=== PATIENT | female | born 1995 | race Caucasian/White ===

== ENCOUNTER 2016-09-16 21:40 | Emergency (ER) | payer OTHER ==
[~2016-09-16 21:40] MED LIST: ACET50TA PO; COLA100C PO; MOM30SS PO
[2016-09-16] MEDS ORDERED: ONDANSETRON 4 MG ORAL DISINTEGRATING TAB (S0181) As Ordered ONE (22:20)
--- NOTE | 2016-09-16 23:32 | EDDOCDS ---
Nurse's Notes [facility] Name: Jaz Walters Age: 21 yrs Sex: Female : 1995 Arrival Date: 09/16/2016 Time: 21:40 Bed D2 Private MD: Maria Isabel Byrnes C Diagnosis: Nausea with vomiting, unspecified;Cough;Acute upper respiratory infection, unspecified Presentation: 09/16 21:42 Presenting complaint: Patient states: that she "can't keep anything down since 2pm this ms18 afternoon" and had a "nasty cough" and her chest has been bothering her. Adult Sepsis Screening: The patient does not have new or worsening altered mentation. Patient's respiratory rate is less than 22. Systolic blood pressure is greater than 100. Patient has a qSOFA score of 0- Negative Sepsis Screen. Suicide/Homicide risk assessment- the patient denies having any suicidal and/or homicidal ideations and does not present with any other emotional, behavioral or mental health complaints. Status: Patient is not a passenger service representative or dependent. Transition of care: patient was not received from another setting of care. 21:42 Acuity: SEDRICK Level 4 ms18 21:42 Method Of Arrival: Walkin/Carried/Asstd ms18 Triage Assessment: 21:45 General: Appears in no apparent distress, comfortable, Behavior is appropriate for age, ms18 cooperative. Pain: Location: back, chest and abdomen Pain currently is 6 out of 10 on a pain scale. Pt Declines HIV testing. Neurological: No deficits noted. Respiratory: Airway is patent Respiratory effort is even, unlabored. GI: Abdomen is non- distended. Derm: Skin is pink, warm & dry. 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 Breo Ellipta 100-25 mcg/dose inhalation dsdv 1 puff once daily 2. Vitamin D Oral Unknown weekly 3. a pill for acne, long name starts with a "M" - PMHx: Asthma; vitamin d deficiency; - PSHx: R ear surgery; - Social history: Smoking status: Patient uses tobacco products, current every day smoker. No barriers to communication noted, The patient speaks fluent Bahraini. - : The pt / caregiver states he / she is not on anticoagulants. The pt / caregiver states he / she is not on anticoagulants. Home medication list is obtained from the patient. - Exposure Risk Screening:: None identified. Assessment: 23:28 Reassessment: Patient appears in no apparent distress at this time. Patient states tm5 feeling better. Patient states symptoms have improved. private mortgage banker safe's note, no s/s of any distress noted, pt voices no complaints at this time . Vital Signs: 21:41 BP 128 / 69; Pulse 117; Resp 18 S; Temp 98.5; Pulse Ox 97% on R/A; Weight 81.65 kg (R); dd6 Height 5 ft. 3 in. (160.02 cm) (R); 23:28 BP 122 / 72; Pulse 78; Resp 18; Temp 98.0(O); Pulse Ox 100% on R/A; Pain 0/10; tm5 21:41 Body Mass Index 31.89 (81.65 kg, 160.02 cm) dd6 Vitals: 21:41 Log In Time: September 16, 2016 at 21:39. dd6 ED Course: 21:41 Patient visited by Jorge Holguin, WENDY. dd6 21:41 Maria Isabel Byrnes is Private Physician. dd6 21:41 Patient moved to Waiting dd6 21:42 Patient moved to Pre RCE dd6 21:43 Triage Initiated ms18 21:50 Patient moved to D1 ms18 21:55 [facility]. dt4 21:55 Lilly Guallpa MD is Attending Physician. dt4 21:55 Patient visited by Keena Kinsey PA-C. dt4 22:18 [facility] Payment Agreement was scanned into [employer] and attached to record. zo 22:30 Patient moved to D2 cjh 22:57 Patient visited by Beatrice Bledsoe, CAR PAINTER. rs6 23:28 Patient visited by Niurka Duncan RN. tm5 23:28 The patient / caregiver is instructed regarding the plan of care and ED course. tm5 23:28 No IV's were initiated during this patient's visit. No procedures done that require tm5 assistance. Administered Medications: 22:28 Drug: Ondansetron ODT 4 mg [ondansetron 4 mg disintegrating tablet (1 tabs)] Route: PO; [facility] Order Results: There are currently no results for this order. Outcome: 23:03 Discharge ordered by Provider. dt4 23:28 Discharge Assessment: Patient awake, alert and oriented x 3. No cognitive and/or tm5 functional deficits noted. Patient verbalized understanding of disposition instructions. patient administered narcotics - no. The following High Risk Discharge criteria are identified: None. Discharged to home ambulatory. Condition: stable. Discharge instructions given to patient, Instructed on discharge instructions, follow up and referral plans. medication usage, Demonstrated understanding of instructions, medications, Pt was receptive of discharge instructions/ teaching. Prescriptions given X 3. No special radiology studies were completed. Property :Personal belongings accompany Pt. 23:31 Patient left the ED. tm5 Signatures: Livier White Daniell, CAR PAINTER CAR PAINTER dd6 Kelsie Bustos,RN RN [facility] Keena Kinsey, PACrissC PA-C dt4 Leena Acosta RN RN ms18 Beatrice Bledsoe, CAR PAINTER CAR PAINTER rs6 Niurka Duncan RN RN tm5 [facility]
--- NOTE | 2016-09-16 23:32 | EDDOCDS ---
Physician Documentation [facility] Name: Jaz Walters Age: 21 yrs Sex: Female : 1995 Arrival Date: 09/16/2016 Time: 21:40 Bed D2 Private MD: Maria Isabel Byrnes C Disposition: 09/16/16 23:03 Discharged to Home/Self Care. Impression: Nausea with vomiting, unspecified, Cough, Acute upper respiratory infection, unspecified. - Condition is Stable. - Discharge Instructions: Nausea and Vomiting, Cough, Adult. - Prescriptions for Reglan 10 mg Oral Tablet - take 1 tablet by ORAL route every 6 hours take 30 minutes before meals and at bedtime; 20 tablet. Zithromax Z- Howard 250 mg Oral Tablet - take 1 tablet by ORAL route as directed for 5 days Day 1- take two tablets once. Day 2, 3, 4 , 5 take one tablet once daily.; 6 tablet. benzonatate 200 mg Oral Capsule - take 1 capsule by ORAL route 3 times per day As needed; 30 capsule. - Medication Reconciliation, Local Pharmacy Hours form. - Follow up: Emergency Department; When: As needed; Reason: Worsening of conditions. Follow up: Private Physician; When: 2 - 3 days; Reason: Wound/Symptom Recheck, Recheck today's complaints, Continuance of care. - Problem is new. - Symptoms have improved. Historical: - Allergies: Amoxicillin; Benadryl; PENICILLINS; - Home Meds: 1. Breo Ellipta 100-25 mcg/dose inhalation dsdv 1 puff once daily 2. Vitamin D Oral Unknown weekly 3. a pill for acne, long name starts with a "M" - PMHx: Asthma; vitamin d deficiency; - PSHx: R ear surgery; - Social history: Smoking status: Patient uses tobacco products, current every day smoker. No barriers to communication noted, The patient speaks fluent Mauritian. - : The pt / caregiver states he / she is not on anticoagulants. The pt / caregiver states he / she is not on anticoagulants. Home medication list is obtained from the patient. - Exposure Risk Screening:: None identified. 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 3 in. (160.02 cm) (R); 23:28 BP 122 / 72; Pulse 78; Resp 18; Temp 98.0(O); Pulse Ox 100% on R/A; Pain 0/10; tm5 21:41 Body Mass Index 31.89 (81.65 kg, 160.02 cm) dd6 MDM: 22:16 Ondansetron ODT Oral Disintegrating Tablet 4 mg PO once ordered. dt4 22:16 Financial registration complete. zo 22:16 Chest, 2 View (pa\\E\\lat) Ordered. EDMS 22:18 [facility] Payment Agreement was scanned into [employer] and attached to record. zo Administered Medications: 22:28 Drug: Ondansetron ODT 4 mg [ondansetron 4 mg disintegrating tablet (1 tabs)] Route: PO; [facility] Signatures: Dispatcher [employer] EDMS Livier White Diane, PA-C PA-C dt4 Leena Acosta,RN RN ms18 Niurka Duncan,RN RN tm5 Kelsie Bustos RN [facility] The chart was reviewed and I authenticate all verbal orders and agree with the evaluation and treatment provided.Attachments: 22:18 [facility] Payment Agreement zo MTDD
--- NOTE | 2016-09-17 08:05 | REP ---
Clinical: Cough . Comparison: 09/04/2006 . Technique: PA and lateral. Findings: The mediastinum and cardiac silhouette are normal. The lung amador are clear and without acute consolidation, effusion, or pneumothorax. The skeletal structures are intact and normal. Impression: 1. No acute cardiopulmonary process. Signed by Bola Izaguirre MD 09/17/2016 07:57 A
--- NOTE | 2016-09-19 00:33 | EDDOCDS ---
Physician Documentation [facility] Name: Jaz Walters Age: 21 yrs Sex: Female : 1995 Arrival Date: 09/16/2016 Time: 21:40 Bed D2 Private MD: Maria Isabel Byrnes C Disposition: 09/16/16 23:03 Discharged to Home/Self Care. Impression: Nausea with vomiting, unspecified, Cough, Acute upper respiratory infection, unspecified. - Condition is Stable. - Discharge Instructions: Nausea and Vomiting, Cough, Adult. - Prescriptions for Reglan 10 mg Oral Tablet - take 1 tablet by ORAL route every 6 hours take 30 minutes before meals and at bedtime; 20 tablet. Zithromax Z- Howard 250 mg Oral Tablet - take 1 tablet by ORAL route as directed for 5 days Day 1- take two tablets once. Day 2, 3, 4 , 5 take one tablet once daily.; 6 tablet. benzonatate 200 mg Oral Capsule - take 1 capsule by ORAL route 3 times per day As needed; 30 capsule. - Medication Reconciliation, Local Pharmacy Hours form. - Follow up: Emergency Department; When: As needed; Reason: Worsening of conditions. Follow up: Private Physician; When: 2 - 3 days; Reason: Wound/Symptom Recheck, Recheck today's complaints, Continuance of care. - Problem is new. - Symptoms have improved. Historical: - Allergies: Amoxicillin; Benadryl; PENICILLINS; - Home Meds: 1. Breo Ellipta 100-25 mcg/dose inhalation dsdv 1 puff once daily 2. Vitamin D Oral Unknown weekly 3. a pill for acne, long name starts with a "M" - PMHx: Asthma; vitamin d deficiency; - PSHx: R ear surgery; - Social history: Smoking status: Patient uses tobacco products, current every day smoker. No barriers to communication noted, The patient speaks fluent Ukrainian. - : The pt / caregiver states he / she is not on anticoagulants. The pt / caregiver states he / she is not on anticoagulants. Home medication list is obtained from the patient. - Exposure Risk Screening:: None identified. 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 3 in. (160.02 cm) (R); 23:28 BP 122 / 72; Pulse 78; Resp 18; Temp 98.0(O); Pulse Ox 100% on R/A; Pain 0/10; tm5 21:41 Body Mass Index 31.89 (81.65 kg, 160.02 cm) dd6 MDM: 22:16 Ondansetron ODT Oral Disintegrating Tablet 4 mg PO once ordered. dt4 22:16 Financial registration complete. zo 22:16 Chest, 2 View (pa\\E\\lat) Ordered. EDMS :18 [facility] Payment Agreement was scanned into [employer] and attached to record. zo 09/17 09:35 T-Sheet-- Draft Copy was scanned into [employer] and attached to record. gb Administered Medications: 09/16 22:28 Drug: Ondansetron ODT 4 mg [ondansetron 4 mg disintegrating tablet (1 tabs)] Route: PO; [facility] Signatures: Dispatcher [employer] EDMS Mayda Ca, Reg Reg gb [place]clay, Hilariaeann zo Keena Kinsey, PACrissC PA-C dt4 Leena AcostaRN RN ms18 Niurka Duncan,RN RN tm5 Kelsie Bustos RN [facility] The chart was reviewed and I authenticate all verbal orders and agree with the evaluation and treatment provided.Attachments: 22:18 [facility] Payment Agreement zo 09/17 09:35 T-Sheet-- Draft Copy gb Chart Complete MTDD
--- NOTE | 2016-09-19 00:33 | EDDOCDS ---
Nurse's Notes [facility] Name: Jaz Walters Age: 21 yrs Sex: Female : 1995 Arrival Date: 09/16/2016 Time: 21:40 Bed D2 Private MD: Maria Isabel Byrnes C Diagnosis: Nausea with vomiting, unspecified;Cough;Acute upper respiratory infection, unspecified Presentation: 09/16 21:42 Presenting complaint: Patient states: that she "can't keep anything down since 2pm this ms18 afternoon" and had a "nasty cough" and her chest has been bothering her. Adult Sepsis Screening: The patient does not have new or worsening altered mentation. Patient's respiratory rate is less than 22. Systolic blood pressure is greater than 100. Patient has a qSOFA score of 0- Negative Sepsis Screen. Suicide/Homicide risk assessment- the patient denies having any suicidal and/or homicidal ideations and does not present with any other emotional, behavioral or mental health complaints. 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 Transition of care: patient was not received from another setting of care. 21:42 Acuity: SEDRICK Level 4 ms18 21:42 Method Of Arrival: Walkin/Carried/Asstd ms18 Triage Assessment: 21:45 General: Appears in no apparent distress, comfortable, Behavior is appropriate for age, ms18 cooperative. Pain: Location: back, chest and abdomen Pain currently is 6 out of 10 on a pain scale. Pt Declines HIV testing. Neurological: No deficits noted. Respiratory: Airway is patent Respiratory effort is even, unlabored. GI: Abdomen is non- distended. Derm: Skin is pink, warm & dry. 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 Breo Ellipta 100-25 mcg/dose inhalation dsdv 1 puff once daily 2. Vitamin D Oral Unknown weekly 3. a pill for acne, long name starts with a "M" - PMHx: Asthma; vitamin d deficiency; - PSHx: R ear surgery; - Social history: Smoking status: Patient uses tobacco products, current every day smoker. No barriers to communication noted, The patient speaks fluent Canadian. - : The pt / caregiver states he / she is not on anticoagulants. The pt / caregiver states he / she is not on anticoagulants. Home medication list is obtained from the patient. - Exposure Risk Screening:: None identified. Assessment: 23:28 Reassessment: Patient appears in no apparent distress at this time. Patient states tm5 feeling better. Patient states symptoms have improved. horse trainer's note, no s/s of any distress noted, pt voices no complaints at this time . Vital Signs: 21:41 BP 128 / 69; Pulse 117; Resp 18 S; Temp 98.5; Pulse Ox 97% on R/A; Weight 81.65 kg (R); dd6 Height 5 ft. 3 in. (160.02 cm) (R); 23:28 BP 122 / 72; Pulse 78; Resp 18; Temp 98.0(O); Pulse Ox 100% on R/A; Pain 0/10; tm5 21:41 Body Mass Index 31.89 (81.65 kg, 160.02 cm) dd6 Vitals: 21:41 Log In Time: September 16, 2016 at 21:39. dd6 ED Course: 21:41 Patient visited by Jorge Holguin, WENDY. dd6 21:41 Maria Isabel Byrnes is Private Physician. dd6 21:41 Patient moved to Waiting dd6 21:42 Patient moved to Pre RCE dd6 21:43 Triage Initiated ms18 21:50 Patient moved to D1 ms18 21:55 Keena Kinsey PA-C [facility]. dt4 21:55 Lilly Guallpa MD is Attending Physician. dt4 21:55 Patient visited by Keena Kinsey PA-C. dt4 22:18 [facility] Payment Agreement was scanned into [employer] and attached to record. zo 22:30 Patient moved to D2 cjh 22:57 Patient visited by Beatrice Bledsoe, PRODUCTION STAGE MANAGER. rs6 23:28 Patient visited by Niurka Duncan RN. tm5 23:28 The patient / caregiver is instructed regarding the plan of care and ED course. tm5 23:28 No IV's were initiated during this patient's visit. No procedures done that require tm5 assistance. 09/17 08:49 Chest, 2 View (pa\\E\\lat) Returned. EDMS 09:35 T-Sheet-- Draft Copy was scanned into [employer] and attached to record. gb Administered Medications: 09/16 22:28 Drug: Ondansetron ODT 4 mg [ondansetron 4 mg disintegrating tablet (1 tabs)] Route: PO; [facility] Order Results: Radiology Order: Chest, 2 View (pa\\E\\lat) Test: Chest, 2 View (pa\\E\\lat) REASON FOR EXAMINATION: Cough; Clinical: Cough .; ; Comparison: 09/04/2006 .; ; Technique: PA and lateral.; ; Findings:; The mediastinum and cardiac silhouette are normal. The lung amador are clear and; without acute consolidation, effusion, or pneumothorax. The skeletal structures; are intact and normal.; ; Impression:; 1. No acute cardiopulmonary process.; ; ; Signed by; Bola Izaguirre MD 09/17/2016 07:57 A; Outcome: 23:03 Discharge ordered by Provider. dt4 23:28 Discharge Assessment: Patient awake, alert and oriented x 3. No cognitive and/or tm5 functional deficits noted. Patient verbalized understanding of disposition instructions. patient administered narcotics - no. The following High Risk Discharge criteria are identified: None. Discharged to home ambulatory. Condition: stable. Discharge instructions given to patient, Instructed on discharge instructions, follow up and referral plans. medication usage, Demonstrated understanding of instructions, medications, Pt was receptive of discharge instructions/ teaching. Prescriptions given X 3. No special radiology studies were completed. Property :Personal belongings accompany Pt. 23:31 Patient left the ED. tm5 Signatures: Dispatcher [employer] EDMS Mayda Ca, Reg Reg gb Livier White Daniell, PRODUCTION STAGE MANAGER PRODUCTION STAGE MANAGER dd6 Kelsie Bustos,RN RN [facility] Keena Kinsey, PA-C PA-C dt4 Leena Acosta,ASHLEY RN ms18 Beatrice Bledsoe, PRODUCTION STAGE MANAGER PRODUCTION STAGE MANAGER rs6 Niurka Duncan RN RN tm5 Chart Complete MTDD
--- NOTE | 2016-09-19 00:33 | EDDOCDS ---
Physician Documentation [facility] Name: Jaz Walters Age: 21 yrs Sex: Female : 1995 Arrival Date: 09/16/2016 Time: 21:40 Bed D2 Private MD: Maria Isabel Byrnes C Disposition: 09/16/16 23:03 Discharged to Home/Self Care. Impression: Nausea with vomiting, unspecified, Cough, Acute upper respiratory infection, unspecified. - Condition is Stable. - Discharge Instructions: Nausea and Vomiting, Cough, Adult. - Prescriptions for Reglan 10 mg Oral Tablet - take 1 tablet by ORAL route every 6 hours take 30 minutes before meals and at bedtime; 20 tablet. Zithromax Z- Howard 250 mg Oral Tablet - take 1 tablet by ORAL route as directed for 5 days Day 1- take two tablets once. Day 2, 3, 4 , 5 take one tablet once daily.; 6 tablet. benzonatate 200 mg Oral Capsule - take 1 capsule by ORAL route 3 times per day As needed; 30 capsule. - Medication Reconciliation, Local Pharmacy Hours form. - Follow up: Emergency Department; When: As needed; Reason: Worsening of conditions. Follow up: Private Physician; When: 2 - 3 days; Reason: Wound/Symptom Recheck, Recheck today's complaints, Continuance of care. - Problem is new. - Symptoms have improved. Historical: - Allergies: Amoxicillin; Benadryl; PENICILLINS; - Home Meds: 1. Breo Ellipta 100-25 mcg/dose inhalation dsdv 1 puff once daily 2. Vitamin D Oral Unknown weekly 3. a pill for acne, long name starts with a "M" - PMHx: Asthma; vitamin d deficiency; - PSHx: R ear surgery; - Social history: Smoking status: Patient uses tobacco products, current every day smoker. No barriers to communication noted, The patient speaks fluent Gabonese. - : The pt / caregiver states he / she is not on anticoagulants. The pt / caregiver states he / she is not on anticoagulants. Home medication list is obtained from the patient. - Exposure Risk Screening:: None identified. 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 3 in. (160.02 cm) (R); 23:28 BP 122 / 72; Pulse 78; Resp 18; Temp 98.0(O); Pulse Ox 100% on R/A; Pain 0/10; tm5 21:41 Body Mass Index 31.89 (81.65 kg, 160.02 cm) dd6 MDM: 22:16 Ondansetron ODT Oral Disintegrating Tablet 4 mg PO once ordered. dt4 22:16 Financial registration complete. zo 22:16 Chest, 2 View (pa\\E\\lat) Ordered. EDMS :18 [facility] Payment Agreement was scanned into [employer] and attached to record. zo 09/17 09:35 T-Sheet-- Draft Copy was scanned into [employer] and attached to record. gb Administered Medications: 09/16 22:28 Drug: Ondansetron ODT 4 mg [ondansetron 4 mg disintegrating tablet (1 tabs)] Route: PO; [facility] Signatures: Dispatcher [employer] EDMS Mayda Ca, Reg Reg gb [place], Hilariaeann zo Keena Kinsey, PACrissC PA-C dt4 Leena AcostaRN RN ms18 Niurka Duncan,RN RN tm5 Kelsie Bustos RN [facility] The chart was reviewed and I authenticate all verbal orders and agree with the evaluation and treatment provided.Attachments: 22:18 [facility] Payment Agreement zo 09/17 09:35 T-Sheet-- Draft Copy gb Chart Complete MTDD
== END 2016-09-16 23:31 | disposition home or self-care (01) ==
LOC: M ED 21:40
DX: R11.2 Nausea with vomiting, unspecified (principal); J06.9 Acute upper respiratory infection, unspecified; J45.909 Unspecified asthma, uncomplicated; E55.9 Vitamin D deficiency, unspecified; F17.210 Nicotine dependence, cigarettes, uncomplicated; Z79.899 Other long term (current) drug therapy; Z79.51 Long term (current) use of inhaled steroids; Z88.0 Allergy status to penicillin; Z88.8 Allergy status to other drugs, medicaments and biological substances

== ENCOUNTER 2016-10-11 12:19 | Emergency (ER) | payer OTHER ==
--- NOTE | 2016-10-11 14:06 | REP ---
HEAD CT WITHOUT CONTRAST: HISTORY: Headache with loss of sensation right side of the body. No comparison brain imaging. CT FINDINGS: Bone window settings demonstrate an intact bony calvarium. There is no evidence of skull fracture or incidental bony calvarial lesion. The visualized paranasal sinuses appear clear. No intraorbital abnormality is seen. On soft tissue window setting images; the lateral, third, and fourth ventricles are normal in size and position. Tafoya-white differentiation pattern is normal above and below the tentorium. There are is no evidence of intracranial hemorrhage. No mass, edema, infarction, or midline shift is seen. No extra-axial fluid collection is appreciated. IMPRESSION: Negative noncontrast head CT. Signed by Ld Castellanos MD 10/11/2016 02:30 P
[2016-10-11] MEDS ORDERED: KETOROLAC 30 MG/ML VIAL (J1885) As Ordered ONE (14:27)
[2016-10-11] MEDS ORDERED: METOCLOPRAMIDE INJ 10MG/2ML VIAL (J2765) As Ordered ONE (14:27)
[2016-10-11] MEDS ORDERED: dexameTHASONE 4 MG/ML 1ML VIAL (J1100) As Ordered ONE (14:27)
--- NOTE | 2016-10-11 16:09 | EDDOCDS ---
Physician Documentation [facility] Name: Jaz Walters Age: 21 yrs Sex: Female : 1995 Arrival Date: 10/11/2016 Time: 12:19 Bed I5 / M5 Private MD: Maria Isabel Byrnes C Disposition: 10/11/16 15:57 Discharged to Home/Self Care. Impression: Headache. - Condition is Stable. - Prescriptions for Zolmitriptan 2.5 mg Oral Tablet - take 1 tablet by ORAL route one time - if headache returns, the dose may be repeated after 2 hours, not to exceed 4 tablets within 24 hours; 30 tablet. - Medication Reconciliation, Local Pharmacy Hours form. - Follow up: Emergency Department; When: As soon as possible; Reason: Worsening of conditions. Follow up: Private Physician; When: 2 - 3 days; Reason: Recheck today's complaints. - Problem is new. - Symptoms are unchanged. Historical: - Allergies: Amoxicillin (Hives); PENICILLINS (Hives); Benadryl (Hives); - Home Meds: 1. Breo Ellipta 100-25 mcg/dose inhalation dsdv 1 puff once daily (Last dose: 10/11/2016 08:30) 2. Vitamin D Oral Unknown weekly (Last dose: Unknown) 3. minocycline Unknown Oral 1 cap once daily (Last dose: 10/11/2016 08:30) 4. acetaminophen 500 mg Oral cap 2 caps every 6 hours (Last dose: 10/11/2016 11:45) - PMHx: Asthma; Vitamin D deficiency; Migraine Headaches; - Social history: Smoking status: Patient uses tobacco products, light tobacco smoker. No barriers to communication noted, The patient speaks fluent Bulgarian. - Family history: Not pertinent. - : The pt / caregiver states he / she is not on anticoagulants. Home medication list is obtained from the patient. - Exposure Risk Screening:: None identified. 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 [facility] Vital Signs: 12:21 BP 117 / 63; Pulse 81; Resp 18 S; Temp 97.6(O); Pulse Ox 97% on R/A; Weight 81.65 kg / gr2 180.01 lbs (R); Height 5 ft. 3 in. (160.02 cm) (R); Pain 8/10; 16:02 BP 121 / 69; Pulse 84; Resp 18; Temp 97.1; Pulse Ox 99% ; Pain 4/10; jam1 12:21 Body Mass Index 31.89 (81.65 kg, 160.02 cm) gr2 MDM: 13:28 Financial registration complete. lg 13:35 CT Head Without Contrast Ordered. EDWI 13:51 [facility] Payment Agreement was scanned into [employer] and attached to record. lg 14:17 IV Saline Lock ordered. jk8 14:17 Dexamethasone 6 mg IV at bolus once ordered. jk8 14:17 ketorolac 15 mg IVP once ordered. jk8 14:17 Metoclopramide 10 mg IV at 40 mg/hr once over 15 mins ordered. jk8 14:29 UCG by Nursing ordered. jo3 Point of Care Testing: Urine : 14:31 hCG Reading: Negative; jam1 Ranges: Administered Medications: 14:17 Drug: Dexamethasone 6 mg [dexamethasone 4 mg/mL injection solution] Route: IV; Rate: jo3 bolus; Site: left antecubital; 14:19 Drug: ketorolac 15 mg [ketorolac 30 mg/mL (1 mL) injection solution (0.5 mL)] Route: jo3 IVP; Site: left antecubital; 14:41 Drug: Metoclopramide 10 mg [metoclopramide 5 mg/mL injection solution] Route: IV; Rate: jo3 40 mg/hr; Infused Over: 15 mins; Site: left antecubital; Signatures: Dispatcher MedHo EDWI Racquel Reed RN RN kpj Ganter, LoriLee, Tl [facility] Grazyna Barton RN RN jo3 Quay, Paulina, RN RN pml Kenniff, Joseph, PA-C PA-C jk8 The chart was reviewed and I authenticate all verbal orders and agree with the evaluation and treatment provided.Attachments: 13:51 [facility] [place] lg MTDD
--- NOTE | 2016-10-11 16:09 | EDDOCDS ---
Nurse's Notes [facility] Name: Jaz Walters Age: 21 yrs Sex: Female : 1995 Arrival Date: 10/11/2016 Time: 12:19 Bed I5 / M5 Private MD: Maria Isabel Byrnes C Diagnosis: Headache Presentation: 10/11 12:26 Presenting complaint: Patient states: woke up with migraine headache. This patient has [facility] no additional risk factors. Adult Sepsis Screening: The patient does not have new or worsening altered mentation. Patient's respiratory rate is less than 22. Systolic blood pressure is greater than 100. Patient has a qSOFA score of 0- Negative Sepsis Screen. Suicide/Homicide risk assessment- the patient denies having any suicidal and/or homicidal ideations and does not present with any other emotional, behavioral or mental health complaints. Status: Patient is not a service control operator or dependent. Transition of care: patient was not received from another setting of care. 12:26 Acuity: SEDRICK Level 3 [facility] 12:26 Method Of Arrival: Walkin/Carried/Asstd [facility] Triage Assessment: 12:30 Headache History: This headache is more severe than any previous headaches the patient [facility] has experienced. General: Appears uncomfortable, well nourished, well groomed, Behavior is appropriate for age, pleasant. Pain: Location: top of head and forehead Pain currently is 9 out of 10 on a pain scale. Pain began this morning. HIV screening NA for this visit Offered previously. Neurological: Level of Consciousness is awake, alert, Oriented to person, place, time, Reports headache rt facial numbness that has subsided. Respiratory: Airway is patent Respiratory effort is even, unlabored, Respiratory pattern is regular, symmetrical. GI: Reports nausea, vomiting. Derm: Skin is dry, Skin is pale, pink, Skin temperature is warm. 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 [facility] Historical: - Allergies: Amoxicillin (Hives); PENICILLINS (Hives); Benadryl (Hives); - Home Meds: 1. Breo Ellipta 100-25 mcg/dose inhalation dsdv 1 puff once daily (Last dose: 10/11/2016 08:30) 2. Vitamin D Oral Unknown weekly (Last dose: Unknown) 3. minocycline Unknown Oral 1 cap once daily (Last dose: 10/11/2016 08:30) 4. acetaminophen 500 mg Oral cap 2 caps every 6 hours (Last dose: 10/11/2016 11:45) - PMHx: Asthma; Vitamin D deficiency; Migraine Headaches; - Social history: Smoking status: Patient uses tobacco products, light tobacco smoker. No barriers to communication noted, The patient speaks fluent Lithuanian. - Family history: Not pertinent. - : The pt / caregiver states he / she is not on anticoagulants. Home medication list is obtained from the patient. - Exposure Risk Screening:: None identified. Screenin:33 Screening information is obtained from the patient. Fall risk: No risks identified. pml Assistance ADL's: requires no assistance with activities of daily living. Abuse/DV Screen: The patient / caregiver reports he/she is: not in a situation that causes fear, pain or injury. Nutritional screening: No deficits noted. Advance Directives: Currently, there is no health care proxy. home support is adequate. Assessment: 14:33 General: Appears in no apparent distress, Behavior is appropriate for age, cooperative. pml Pain: Location: forehead and top of head Pain currently is 8 out of 10 on a pain scale. Neurological: Level of Consciousness is awake, alert, Oriented to person, place, time. Neurological: Denies blurred vision dizziness, photophobia. Cardiovascular: Capillary refill < 3 seconds. Respiratory: Airway is patent Respiratory effort is even, unlabored. GI: Abdomen is non- distended Reports vomiting. Derm: Skin is pink, warm & dry. 15:57 General: Appears to be sleeping. Cardiovascular: Capillary refill < 3 seconds. pml Respiratory: Airway is patent Respiratory effort is even, unlabored. Derm: Skin is pink, warm & dry. 16:06 General: Appears in no apparent distress, Behavior is appropriate for age, cooperative. pml Pain: Location: top of head Pain currently is 3 out of 10 on a pain scale. Neurological: Level of Consciousness is awake, alert, Oriented to person, place, time. Cardiovascular: Capillary refill < 3 seconds. Respiratory: Airway is patent Respiratory effort is even, unlabored. Derm: Skin is pink, warm & dry. Vital Signs: 12:21 BP 117 / 63; Pulse 81; Resp 18 S; Temp 97.6(O); Pulse Ox 97% on R/A; Weight 81.65 kg gr2 (R); Height 5 ft. 3 in. (160.02 cm) (R); Pain 8/10; 16:02 BP 121 / 69; Pulse 84; Resp 18; Temp 97.1; Pulse Ox 99% ; Pain 4/10; jam1 12:21 Body Mass Index 31.89 (81.65 kg, 160.02 cm) gr2 Vitals: 12:21 Log In Time: October 11, 2016 at 12:21. gr2 ED Course: 12:20 Patient visited by Afia Valentin. gr2 12:20 Patient moved to Waiting gr2 12:21 Maria Isabel Byrnes is Private Physician. gr2 12:22 Patient visited by Afia Valentin. gr2 12:22 Patient moved to Pre RCE gr2 12:28 Triage Initiated kp 12:57 Patient moved to Triage 3 srm 13:27 Reg Dahl PA-C is PHCP. jk8 13:27 Petrona Katz MD is Attending Physician. jk8 13:27 Patient visited by Reg Dahl PA-C. jk8 13:51 [facility] Payment Agreement was scanned into [employer] and attached to record. lg 13:51 Patient moved to TR2 dem1 14:22 Patient moved to I5 / M5 srm 14:33 The patient / caregiver is instructed regarding the plan of care and ED course. Patient pml has correct armband on for positive identification. Placed in gown. Bed in low position. Call light in reach. Side rails up X2. 14:33 Inserted peripheral IV: 20gauge IV in left antecubital area and blood collected. pml Patient tolerated the procedure well. 14:34 Patient visited by Duyen Wang RN. pml 14:43 CT Head Without Contrast Returned. EDMS 15:57 Patient visited by Duyen Wang RN. pml 16:06 Discontinued lock intact, bleeding controlled, pressure dressing applied, No pml redness/swelling at site. No procedures done that require assistance. Administered Medications: 14:17 Drug: Dexamethasone 6 mg [dexamethasone 4 mg/mL injection solution] Route: IV; Rate: jo3 bolus; Site: left antecubital; 14:19 Drug: ketorolac 15 mg [ketorolac 30 mg/mL (1 mL) injection solution (0.5 mL)] Route: jo3 IVP; Site: left antecubital; 14:41 Drug: Metoclopramide 10 mg [metoclopramide 5 mg/mL injection solution] Route: IV; Rate: jo3 40 mg/hr; Infused Over: 15 mins; Site: left antecubital; Point of Care Testing: Urine : 14:31 hCG Reading: Negative; jam1 Ranges: Order Results: Radiology Order: CT Head Without Contrast Test: CT Head Without Contrast REASON FOR EXAMINATION: HEADACHE WITH LOSS F SENSATIN RIGHT SIDE OF BODY; HEAD CT WITHOUT CONTRAST:; ; HISTORY: Headache with loss of sensation right side of the body.; ; No comparison brain imaging.; ; CT FINDINGS: Bone window settings demonstrate an intact bony calvarium. There; is no evidence of skull fracture or incidental bony calvarial lesion. The; visualized paranasal sinuses appear clear. No intraorbital abnormality is seen.; On soft tissue window setting images; the lateral, third, and fourth ventricles; are normal in size and position. Tafoya-white differentiation pattern is normal; above and below the tentorium. There are is no evidence of intracranial; hemorrhage. No mass, edema, infarction, or midline shift is seen. No; extra-axial fluid collection is appreciated.; ; IMPRESSION:; ; Negative noncontrast head CT.; ; ; Signed by; Ld Castellanos MD 10/11/2016 02:30 P; Outcome: 15:57 Discharge ordered by Provider. jk8 16:06 Discharge Assessment: Patient awake, alert and oriented x 3. No cognitive and/or pml functional deficits noted. Patient verbalized understanding of disposition instructions. patient administered narcotics - no. The following High Risk Discharge criteria are identified: None. Discharged to home ambulatory. Condition: good Condition: stable. Discharge instructions given to patient, Instructed on discharge instructions, follow up and referral plans. medication usage, Demonstrated understanding of instructions, medications, Pt was receptive of discharge instructions/ teaching. CT Study completed. Property sent home with patient. 16:08 Patient left the ED. pml Signatures: Dispatcher [employer] EDRacquel Mckeon RN RN kpj Michelson, Staci, RN RN srm Murphy, Jane, INTERNET NETWORK SPECIALIST INTERNET NETWORK SPECIALIST jam1 Jaylon Sanders, Grazyna Carter lg, RN RN jo3 Duyen Wang RN RN pml Jersey Suarez1 Afia Valentin2 Reg Dahl PA-C PA-C jk8 IRINAD
--- NOTE | 2016-10-13 17:09 | EDDOCDS ---
Physician Documentation [facility] Name: Jaz Walters Age: 21 yrs Sex: Female : 1995 Arrival Date: 10/11/2016 Time: 12:19 Bed I5 / M5 Private MD: Maria Isabel Byrnes C Disposition: 10/11/16 15:57 Discharged to Home/Self Care. Impression: Headache. - Condition is Stable. - Prescriptions for Zolmitriptan 2.5 mg Oral Tablet - take 1 tablet by ORAL route one time - if headache returns, the dose may be repeated after 2 hours, not to exceed 4 tablets within 24 hours; 30 tablet. - Medication Reconciliation, Local Pharmacy Hours form. - Follow up: Emergency Department; When: As soon as possible; Reason: Worsening of conditions. Follow up: Private Physician; When: 2 - 3 days; Reason: Recheck today's complaints. - Problem is new. - Symptoms are unchanged. Historical: - Allergies: Amoxicillin (Hives); PENICILLINS (Hives); Benadryl (Hives); - Home Meds: 1. Breo Ellipta 100-25 mcg/dose inhalation dsdv 1 puff once daily (Last dose: 10/11/2016 08:30) 2. Vitamin D Oral Unknown weekly (Last dose: Unknown) 3. minocycline Unknown Oral 1 cap once daily (Last dose: 10/11/2016 08:30) 4. acetaminophen 500 mg Oral cap 2 caps every 6 hours (Last dose: 10/11/2016 11:45) - PMHx: Asthma; Vitamin D deficiency; Migraine Headaches; - Social history: Smoking status: Patient uses tobacco products, light tobacco smoker. No barriers to communication noted, The patient speaks fluent Kyrgyz. - Family history: Not pertinent. - : The pt / caregiver states he / she is not on anticoagulants. Home medication list is obtained from the patient. - Exposure Risk Screening:: None identified. 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 [facility] Vital Signs: 12:21 BP 117 / 63; Pulse 81; Resp 18 S; Temp 97.6(O); Pulse Ox 97% on R/A; Weight 81.65 kg / gr2 180.01 lbs (R); Height 5 ft. 3 in. (160.02 cm) (R); Pain 8/10; 16:02 BP 121 / 69; Pulse 84; Resp 18; Temp 97.1; Pulse Ox 99% ; Pain 4/10; jam1 12:21 Body Mass Index 31.89 (81.65 kg, 160.02 cm) gr2 MDM: 13:28 Financial registration complete. lg 13:35 CT Head Without Contrast Ordered. EDMS 13:51 [facility] [place] [facility] Payment Agreement was scanned into [employer] and attached to record. lg 14:17 IV Saline Lock ordered. jk8 14:17 Dexamethasone 6 mg IV at bolus once ordered. jk8 14:17 ketorolac 15 mg IVP once ordered. jk8 14:17 Metoclopramide 10 mg IV at 40 mg/hr once over 15 mins ordered. jk8 14:29 UCG by Nursing ordered. jo3 21:58 T-Sheet-- Draft Copy was scanned into [employer] and attached to record. klr Point of Care Testing: Urine : 14:31 hCG Reading: Negative; jam1 Ranges: Administered Medications: 14:17 Drug: Dexamethasone 6 mg [dexamethasone 4 mg/mL injection solution] Route: IV; Rate: jo3 bolus; Site: left antecubital; 14:19 Drug: ketorolac 15 mg [ketorolac 30 mg/mL (1 mL) injection solution (0.5 mL)] Route: jo3 IVP; Site: left antecubital; 14:41 Drug: Metoclopramide 10 mg [metoclopramide 5 mg/mL injection solution] Route: IV; Rate: jo3 40 mg/hr; Infused Over: 15 mins; Site: left antecubital; Signatures: Dispatcher [employer] EDNV Racquel Reed RN RN kpj Ganter, LoriLee, Reg Reg lg Grazyna Barton RN RN jo3 Quay, Paulina, RN RN pml Kenniff, Joseph, PA-C PA-C jk8 Redder, Kathie klr The chart was reviewed and I authenticate all verbal orders and agree with the evaluation and treatment provided.Attachments: 13:51 [facility] Payment Agreement lg 21:58 T-Sheet-- Draft Copy klr Chart Complete MTDD
--- NOTE | 2016-10-13 17:09 | EDDOCDS ---
Nurse's Notes [facility] Name: Jaz Walters Age: 21 yrs Sex: Female : 1995 Arrival Date: 10/11/2016 Time: 12:19 Bed I5 / M5 Private MD: Maria Isabel Byrnes C Diagnosis: Headache Presentation: 10/11 12:26 Presenting complaint: Patient states: woke up with migraine headache. This patient has [facility] no additional risk factors. Adult Sepsis Screening: The patient does not have new or worsening altered mentation. Patient's respiratory rate is less than 22. Systolic blood pressure is greater than 100. Patient has a qSOFA score of 0- Negative Sepsis Screen. Suicide/Homicide risk assessment- the patient denies having any suicidal and/or homicidal ideations and does not present with any other emotional, behavioral or mental health complaints. 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 Transition of care: patient was not received from another setting of care. 12:26 Acuity: SEDRICK Level 3 [facility] 12:26 Method Of Arrival: Walkin/Carried/Asstd [facility] Triage Assessment: 12:30 Headache History: This headache is more severe than any previous headaches the patient [facility] has experienced. General: Appears uncomfortable, well nourished, well groomed, Behavior is appropriate for age, pleasant. Pain: Location: top of head and forehead Pain currently is 9 out of 10 on a pain scale. Pain began this morning. HIV screening NA for this visit Offered previously. Neurological: Level of Consciousness is awake, alert, Oriented to person, place, time, Reports headache rt facial numbness that has subsided. Respiratory: Airway is patent Respiratory effort is even, unlabored, Respiratory pattern is regular, symmetrical. GI: Reports nausea, vomiting. Derm: Skin is dry, Skin is pale, pink, Skin temperature is warm. 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 [facility] Historical: - Allergies: Amoxicillin (Hives); PENICILLINS (Hives); Benadryl (Hives); - Home Meds: 1. Breo Ellipta 100-25 mcg/dose inhalation dsdv 1 puff once daily (Last dose: 10/11/2016 08:30) 2. Vitamin D Oral Unknown weekly (Last dose: Unknown) 3. minocycline Unknown Oral 1 cap once daily (Last dose: 10/11/2016 08:30) 4. acetaminophen 500 mg Oral cap 2 caps every 6 hours (Last dose: 10/11/2016 11:45) - PMHx: Asthma; Vitamin D deficiency; Migraine Headaches; - Social history: Smoking status: Patient uses tobacco products, light tobacco smoker. No barriers to communication noted, The patient speaks fluent Korean. - Family history: Not pertinent. - : The pt / caregiver states he / she is not on anticoagulants. Home medication list is obtained from the patient. - Exposure Risk Screening:: None identified. Screenin:33 Screening information is obtained from the patient. Fall risk: No risks identified. pml Assistance ADL's: requires no assistance with activities of daily living. Abuse/DV Screen: The patient / caregiver reports he/she is: not in a situation that causes fear, pain or injury. Nutritional screening: No deficits noted. Advance Directives: Currently, there is no health care proxy. home support is adequate. Assessment: 14:33 General: Appears in no apparent distress, Behavior is appropriate for age, cooperative. pml Pain: Location: forehead and top of head Pain currently is 8 out of 10 on a pain scale. Neurological: Level of Consciousness is awake, alert, Oriented to person, place, time. Neurological: Denies blurred vision dizziness, photophobia. Cardiovascular: Capillary refill < 3 seconds. Respiratory: Airway is patent Respiratory effort is even, unlabored. GI: Abdomen is non- distended Reports vomiting. Derm: Skin is pink, warm & dry. 15:57 General: Appears to be sleeping. Cardiovascular: Capillary refill < 3 seconds. pml Respiratory: Airway is patent Respiratory effort is even, unlabored. Derm: Skin is pink, warm & dry. 16:06 General: Appears in no apparent distress, Behavior is appropriate for age, cooperative. pml Pain: Location: top of head Pain currently is 3 out of 10 on a pain scale. Neurological: Level of Consciousness is awake, alert, Oriented to person, place, time. Cardiovascular: Capillary refill < 3 seconds. Respiratory: Airway is patent Respiratory effort is even, unlabored. Derm: Skin is pink, warm & dry. Vital Signs: 12:21 BP 117 / 63; Pulse 81; Resp 18 S; Temp 97.6(O); Pulse Ox 97% on R/A; Weight 81.65 kg gr2 (R); Height 5 ft. 3 in. (160.02 cm) (R); Pain 8/10; 16:02 BP 121 / 69; Pulse 84; Resp 18; Temp 97.1; Pulse Ox 99% ; Pain 4/10; jam1 12:21 Body Mass Index 31.89 (81.65 kg, 160.02 cm) gr2 Vitals: 12:21 Log In Time: October 11, 2016 at 12:21. gr2 ED Course: 12:20 Patient visited by Afia Valentin. gr2 12:20 Patient moved to Waiting gr2 12:21 Maria Isabel Byrnes is Private Physician. gr2 12:22 Patient visited by Afia Valentin. gr2 12:22 Patient moved to Pre RCE gr2 12:28 Triage Initiated kp 12:57 Patient moved to Triage 3 srm 13:27 Reg Dahl PA-C is PHCP. jk8 13:27 Petrona Katz MD is Attending Physician. jk8 13:27 Patient visited by Reg Dahl PA-C. jk8 13:51 [facility] Payment Agreement was scanned into [employer] and attached to record. lg 13:51 Patient moved to TR2 dem1 14:22 Patient moved to I5 / M5 srm 14:33 The patient / caregiver is instructed regarding the plan of care and ED course. Patient pml has correct armband on for positive identification. Placed in gown. Bed in low position. Call light in reach. Side rails up X2. 14:33 Inserted peripheral IV: 20gauge IV in left antecubital area and blood collected. pml Patient tolerated the procedure well. 14:34 Patient visited by Duyen Wang RN. pml 14:43 CT Head Without Contrast Returned. EDMS 15:57 Patient visited by Duyen Wang RN. pml 16:06 Discontinued lock intact, bleeding controlled, pressure dressing applied, No pml redness/swelling at site. No procedures done that require assistance. 21:58 T-Sheet-- Draft Copy was scanned into [employer] and attached to record. klr Administered Medications: 14:17 Drug: Dexamethasone 6 mg [dexamethasone 4 mg/mL injection solution] Route: IV; Rate: jo3 bolus; Site: left antecubital; 14:19 Drug: ketorolac 15 mg [ketorolac 30 mg/mL (1 mL) injection solution (0.5 mL)] Route: jo3 IVP; Site: left antecubital; 14:41 Drug: Metoclopramide 10 mg [metoclopramide 5 mg/mL injection solution] Route: IV; Rate: jo3 40 mg/hr; Infused Over: 15 mins; Site: left antecubital; Point of Care Testing: Urine : 14:31 hCG Reading: Negative; jam1 Ranges: Order Results: Radiology Order: CT Head Without Contrast Test: CT Head Without Contrast REASON FOR EXAMINATION: HEADACHE WITH LOSS F SENSATIN RIGHT SIDE OF BODY; HEAD CT WITHOUT CONTRAST:; ; HISTORY: Headache with loss of sensation right side of the body.; ; No comparison brain imaging.; ; CT FINDINGS: Bone window settings demonstrate an intact bony calvarium. There; is no evidence of skull fracture or incidental bony calvarial lesion. The; visualized paranasal sinuses appear clear. No intraorbital abnormality is seen.; On soft tissue window setting images; the lateral, third, and fourth ventricles; are normal in size and position. Tafoya-white differentiation pattern is normal; above and below the tentorium. There are is no evidence of intracranial; hemorrhage. No mass, edema, infarction, or midline shift is seen. No; extra-axial fluid collection is appreciated.; ; IMPRESSION:; ; Negative noncontrast head CT.; ; ; Signed by; Ld Castellanos MD 10/11/2016 02:30 P; Outcome: 15:57 Discharge ordered by Provider. jk8 16:06 Discharge Assessment: Patient awake, alert and oriented x 3. No cognitive and/or pml functional deficits noted. Patient verbalized understanding of disposition instructions. patient administered narcotics - no. The following High Risk Discharge criteria are identified: None. Discharged to home ambulatory. Condition: good Condition: stable. Discharge instructions given to patient, Instructed on discharge instructions, follow up and referral plans. medication usage, Demonstrated understanding of instructions, medications, Pt was receptive of discharge instructions/ teaching. CT Study completed. Property sent home with patient. 16:08 Patient left the ED. pml Signatures: Dispatcher MedHo EDMA Racquel Reed RN RN kpj Michelson, Staci, RN RN srm Murphy, Jane, FLAGSTONE LAYER FLAGSTONE LAYER jam1 Jaylon Sanders, Reg Reg lg Grazyna Barton,ASHLEY RN quintin3 Duyen WangRN RN Jersey Swanson Gainslee gr2 Reg Dahl, EMELY [email or web address] Dorota Zurita Chart Complete MTDD
--- NOTE | 2016-10-13 17:09 | EDDOCDS ---
Physician Documentation [facility] Name: Jaz Walters Age: 21 yrs Sex: Female : 1995 Arrival Date: 10/11/2016 Time: 12:19 Bed I5 / M5 Private MD: Maria Isabel Byrnes C Disposition: 10/11/16 15:57 Discharged to Home/Self Care. Impression: Headache. - Condition is Stable. - Prescriptions for Zolmitriptan 2.5 mg Oral Tablet - take 1 tablet by ORAL route one time - if headache returns, the dose may be repeated after 2 hours, not to exceed 4 tablets within 24 hours; 30 tablet. - Medication Reconciliation, Local Pharmacy Hours form. - Follow up: Emergency Department; When: As soon as possible; Reason: Worsening of conditions. Follow up: Private Physician; When: 2 - 3 days; Reason: Recheck today's complaints. - Problem is new. - Symptoms are unchanged. Historical: - Allergies: Amoxicillin (Hives); PENICILLINS (Hives); Benadryl (Hives); - Home Meds: 1. Breo Ellipta 100-25 mcg/dose inhalation dsdv 1 puff once daily (Last dose: 10/11/2016 08:30) 2. Vitamin D Oral Unknown weekly (Last dose: Unknown) 3. minocycline Unknown Oral 1 cap once daily (Last dose: 10/11/2016 08:30) 4. acetaminophen 500 mg Oral cap 2 caps every 6 hours (Last dose: 10/11/2016 11:45) - PMHx: Asthma; Vitamin D deficiency; Migraine Headaches; - Social history: Smoking status: Patient uses tobacco products, light tobacco smoker. No barriers to communication noted, The patient speaks fluent Slovak. - Family history: Not pertinent. - : The pt / caregiver states he / she is not on anticoagulants. Home medication list is obtained from the patient. - Exposure Risk Screening:: None identified. MUSTANGER: 10/11 12:30 LMP 08/21/2016, had a baby in May, not breast feeding. [facility] Vital Signs: 12:21 BP 117 / 63; Pulse 81; Resp 18 S; Temp 97.6(O); Pulse Ox 97% on R/A; Weight 81.65 kg / gr2 180.01 lbs (R); Height 5 ft. 3 in. (160.02 cm) (R); Pain 8/10; 16:02 BP 121 / 69; Pulse 84; Resp 18; Temp 97.1; Pulse Ox 99% ; Pain 4/10; jam1 12:21 Body Mass Index 31.89 (81.65 kg, 160.02 cm) gr2 MDM: 13:28 Financial registration complete. lg 13:35 CT Head Without Contrast Ordered. EDMS 13:51 [facility] [place] was scanned into myhub and attached to record. lg 14:17 IV Saline Lock ordered. jk8 14:17 Dexamethasone 6 mg IV at bolus once ordered. jk8 14:17 ketorolac 15 mg IVP once ordered. jk8 14:17 Metoclopramide 10 mg IV at 40 mg/hr once over 15 mins ordered. jk8 14:29 UCG by Nursing ordered. jo3 21:58 T-Sheet-- Draft Copy was scanned into myhub and attached to record. klr Point of Care Testing: Urine : 14:31 hCG Reading: Negative; jam1 Ranges: Administered Medications: 14:17 Drug: Dexamethasone 6 mg [dexamethasone 4 mg/mL injection solution] Route: IV; Rate: jo3 bolus; Site: left antecubital; 14:19 Drug: ketorolac 15 mg [ketorolac 30 mg/mL (1 mL) injection solution (0.5 mL)] Route: jo3 IVP; Site: left antecubital; 14:41 Drug: Metoclopramide 10 mg [metoclopramide 5 mg/mL injection solution] Route: IV; Rate: jo3 40 mg/hr; Infused Over: 15 mins; Site: left antecubital; Signatures: Dispatcher [employer] EDRI Racquel Reed RN RN kpj Ganter, LoriLee, Reg Reg lg Grazyna Barton RN RN jo3 Quay, Paulina, RN RN pml Kenniff, Joseph, PA-C PA-C jk8 Redder, Kathie klr The chart was reviewed and I authenticate all verbal orders and agree with the evaluation and treatment provided.Attachments: 13:51 [facility] Payment Agreement lg 21:58 T-Sheet-- Draft Copy klr Chart Complete MTDD
== END 2016-10-11 16:08 | disposition home or self-care (01) ==
LOC: M ED 12:19
DX: R51 Headache (principal); J45.909 Unspecified asthma, uncomplicated; E55.9 Vitamin D deficiency, unspecified; F17.200 Nicotine dependence, unspecified, uncomplicated; Z79.51 Long term (current) use of inhaled steroids; Z79.899 Other long term (current) drug therapy; Z88.0 Allergy status to penicillin; Z88.1 Allergy status to other antibiotic agents; Z88.8 Allergy status to other drugs, medicaments and biological substances
CPT/HCPCS: 36415; 70450; 81025; 96374; 96375; 99284; J1100; J1885; J2765

== ENCOUNTER 2017-02-26 00:56 | Emergency (ER) | payer OTHER ==
[~2017-02-26 00:56] MED LIST changes: -COLA100C PO; +COLA100C5 PO
[2017-02-26] MEDS ORDERED: BREO1INH INH (01:06)
[2017-02-26] MEDS ORDERED: VITA200016 PO (01:06)
[2017-02-26] MEDS ORDERED: ALBU17IN2 INH (01:08)
[2017-02-26] MEDS ORDERED: KETOROLAC 60 MG/2 ML VIAL (J1885) IM ONE (04:00)
--- NOTE | 2017-02-26 04:34 | REP ---
Clinical: Chest pain . Comparison: 09/16/2016 . Technique: PA and lateral. Findings: The mediastinum and cardiac silhouette are normal. The lung amador are clear and without acute consolidation, effusion, or pneumothorax. The skeletal structures are intact and normal. Impression: 1. No acute cardiopulmonary process. Signed by Bola Izaguirre MD 02/26/2017 04:26 A
[2017-02-26 04:46] VITALS: BP 132/78
[2017-02-26] MEDS ORDERED: KETO10TAB PO (06:28)
== END 2017-02-26 06:43 | disposition home or self-care (01) ==
LOC: M ED 01:58
DX: R07.1 Chest pain on breathing (principal); J45.909 Unspecified asthma, uncomplicated; F17.200 Nicotine dependence, unspecified, uncomplicated; Z79.51 Long term (current) use of inhaled steroids; Z79.899 Other long term (current) drug therapy; Z88.6 Allergy status to analgesic agent; Z88.8 Allergy status to other drugs, medicaments and biological substances; Z88.0 Allergy status to penicillin

== ENCOUNTER 2017-03-05 17:20 | Emergency (ER) | payer OTHER ==
[~2017-03-05] VITALS: Ht 160 cm; Wt 86.4 kg
[~2017-03-05 17:20] MED LIST changes: +ALBU17IN2 INH; +BREO1INH INH; +KETO10TAB PO; +VITA200016 PO
[2017-03-05] MEDS ORDERED: ALBUTEROL 90 MCG/ACT 8GM HFA INHALER INH ONE (18:15)
[2017-03-05] MEDS ORDERED: ACETAMINOPHEN 325 MG TAB PO ONE (18:15)
[2017-03-05] MEDS ORDERED: ALBU17IN INH (18:17)
[2017-03-05 18:32] VITALS: BP 117/58
== END 2017-03-05 18:39 | disposition home or self-care (01) ==
LOC: M ED 17:20
DX: J06.9 Acute upper respiratory infection, unspecified (principal); R07.89 Other chest pain; J45.909 Unspecified asthma, uncomplicated; Z79.51 Long term (current) use of inhaled steroids; Z79.899 Other long term (current) drug therapy; Z88.6 Allergy status to analgesic agent; Z88.0 Allergy status to penicillin

== ENCOUNTER → 2017-06-19 | Outpatient (CLI) | payer OTHER ==
[~2017-06-19] MED LIST changes: +ALBU17IN INH
[2017-06-19 14:15] LABS: BASO % 0.4 % (0.0-1.0); EOS # 0.1 10^3/uL (0.0-0.50); EOS % 0.6 % (0.0-3.0); IMMATURE GRANULOCYTE % 0.3 % (0-0); LYMPH # 2.7 10^3/uL (1.5-6.5); LYMPH % 25.7 % (24.0-44.0); MEAN CORPUSCULAR HEMOGLOBIN 27.4 pg (27.0-33.0); MEAN CORPUSCULAR HGB CONC 33.3 g/dl (32.0-36.5); MEAN CORPUSCULAR VOLUME 82.4 fl (80.0-96.0); MONO # 0.6 10^3/uL (0.0-0.8); MONO % 5.9 % (0.0-5.0); NEUTROPHILS % 67.1 % (36.0-66.0); RED CELL DISTRIBUTION WIDTH 13.1 % (11.5-14.5); WHITE BLOOD COUNT 10.4 10^3/uL (4.0-10.0)
[2017-06-19 14:38] LABS: VITAMIN B12 LEVEL 626 PG/ML (247-911)
[2017-06-19 14:39] LABS: FOLATE 16.3 NG/ML (>5.4)
[2017-06-19 14:44] LABS: ALBUMIN 3.2 GM/DL (3.2-5.2); ALBUMIN/GLOBULIN RATIO 0.91 (1.00-1.93); ALKALINE PHOSPHATASE 134 U/L (45-117); ALT/SGPT 15 U/L (12-78); ANION GAP 7 MEQ/L (8-16); AST/SGOT 15 U/L (15-37); BILIRUBIN,TOTAL 0.2 MG/DL (0.2-1.0); BLOOD UREA NITROGEN 11 MG/DL (7-18); CALCIUM LEVEL 8.6 MG/DL (8.5-10.1); CARBON DIOXIDE LEVEL 26 MEQ/L (21-32); CHLORIDE LEVEL 106 MEQ/L (98-107); CREATININE FOR GFR 0.51 MG/DL (0.55-1.02); FERRITIN 23 NG/ML (8-252); FREE T4 0.83 NG/DL (0.76-1.46); GLOMERULAR FILTRATION RATE > 60.0 (>60); GLUCOSE, FASTING 86 MG/DL (70-105); POTASSIUM SERUM 4.1 MEQ/L (3.5-5.1); SODIUM LEVEL 139 MEQ/L (136-145); TOTAL PROTEIN 6.7 GM/DL (6.4-8.2)
--- NOTE | 2017-06-19 15:18 | REP ---
Chest two views HISTORY: Shortness of breath Comparison: 02/26/2017 The lungs are clear. The heart is normal in size. The pulmonary vasculature is normal in appearance. The bony structure is intact. IMPRESSION: No acute disease. Signed by Conrado Thomas MD 06/19/2017 03:09 P
--- NOTE | 2017-06-19 16:30 | REP ---
Digital diagnostic unilateral left breast mammography and focused left breast sonography: History: Left breast lump with left breast pain. 1 cm tender nodule palpated by clinician breast exam left breast at 2 o'clock position. The patient does not feel this today. Mammographic findings: CC and MLO views of the left breast were obtained with a skin marker affixed to the skin at the site of the palpable lump in the left upper outer quadrant. Breast parenchyma is predominately fat replaced. No dominant density seen mammographically. No spiculation or architectural distortion is seen. No worrisome skin change is seen. Sonographic findings: The left breast scanned sonographically from 1 o'clock to 3 o'clock focusing on the area of the palpable lump described at 2 o'clock. Normal mildly heterogeneous fibroglandular echotexture is seen. No cyst, mass, or acoustic shadowing is seen by ultrasound. Impression: BIRADS category one negative left breast imaging. This negative report should not dissuade one from biopsy of a palpable lump depending on its clinical characteristics. Clinical follow-up is recommended. This mammogram was interpreted with the aid of an FDA-approved computer-aided detection system. The patient states she had a clinical breast exam in June 19, 2017 The patient letter being requested is M2. Signed by Ld Castellanos MD 06/19/2017 07:18 P
[2017-06-23 00:11] LABS: Lyme Disease IgG/IgM Antibodie <0.91 ISR (0.00-0.90); Lyme Disease IgM Ab Quantitati <0.80 index (0.00-0.79)
[2017-06-23 10:40] LABS: ALBUMIN 3.59 GM/DL (3.29-5.55); ALBUMIN % 53.6 % (55.8-66.1); GAMMA GLOBULIN % 13.8 % (11.1-18.8)
== END ==
LOC: M RAD 11:43
PROVIDERS: ATTEND Physician Assistant Medical
DX: N63.20 Unspecified lump in the left breast, unspecified quadrant (principal); J45.909 Unspecified asthma, uncomplicated; R53.83 Other fatigue
CPT/HCPCS: 36415; 71020; 76642; 80053; 82306; 82550; 82607; 82728; 82746; 83540; 84165; 84439; 84443; 85027; 85652; 85730; 86038; 86431; 86617; G0206

== ENCOUNTER 2017-11-02 16:51 | Emergency (ER) | payer OTHER ==
[2017-11-02] MEDS: ONDANSETRON 4 MG ORAL DISINTEGRATING TAB (S0181) PO (18:11)
[2017-11-02] MEDS: EXPOSURE KIT-ADULT 7 DAY SUPPLY PO (18:11)
[2017-11-02] MEDS: ADACEL/BOOSTRIX VACCINE (DIPHTH/PERTUSS/ACELL/TETANUS)0.5ML SYR (90715) IM (18:11)
[2017-11-02 18:14] LABS: BASO % 0.3 % (0.0-1.0); EOS # 0.1 10^3/uL (0.0-0.50); EOS % 1.3 % (0.0-3.0); HEMATOCRIT 40.6 % (36.0-47.0); HEMOGLOBIN 13.4 g/dl (12.0-16.0); IMMATURE GRANULOCYTE % 0.3 % (0-3.0); MEAN CORPUSCULAR HEMOGLOBIN 27.1 pg (27.0-33.0); MEAN CORPUSCULAR VOLUME 82.2 fl (80.0-96.0); MONO # 0.5 10^3/uL (0.0-0.8); MONO % 7.1 % (0.0-5.0); NEUTROPHILS # 3.3 10^3/uL (1.8-7.7); PLATELET COUNT, AUTOMATED 327 10^3/uL (150-450); RED BLOOD COUNT 4.94 10^6/uL (4.00-5.40); RED CELL DISTRIBUTION WIDTH 13.2 % (11.5-14.5); WHITE BLOOD COUNT 6.9 10^3/uL (4.0-10.0)
[2017-11-02 18:30] LABS: CONTROL LINE HCG INT CTR LINE PRESENT; HCG, SERUM QUALITATIVE NEGATIVE (NEGATIVE)
[2017-11-02 18:36] LABS: ALBUMIN 3.3 GM/DL (3.2-5.2); ALBUMIN/GLOBULIN RATIO 0.92 (1.00-1.93); ALKALINE PHOSPHATASE 124 U/L (45-117); ALT/SGPT 19 U/L (12-78); ANION GAP 9 MEQ/L (8-16); AST/SGOT 25 U/L (7-37); BILIRUBIN,TOTAL 0.1 MG/DL (0.2-1.0); BLOOD UREA NITROGEN 14 MG/DL (7-18); CALCIUM LEVEL 8.7 MG/DL (8.5-10.1); CARBON DIOXIDE LEVEL 26 MEQ/L (21-32); CHLORIDE LEVEL 107 MEQ/L (98-107); CREATININE FOR GFR 0.66 MG/DL (0.55-1.30); GLOMERULAR FILTRATION RATE > 60.0 (>60); GLUCOSE, FASTING 86 MG/DL (70-100); POTASSIUM SERUM 3.9 MEQ/L (3.5-5.1); SODIUM LEVEL 142 MEQ/L (136-145); TOTAL PROTEIN 6.9 GM/DL (6.4-8.2)
[2017-11-02 19:29] LABS: HIV 1&2 SCREEN CENTAUR NEGATIVE (NEGATIVE)
[2017-11-04 11:00] LABS: HEPATITIS B SURFACE ANTIBODY POSITIVE (POSITIVE)
[2017-11-04 11:11] LABS: HEPATITIS B SURFACE ANTIGEN NEGATIVE (NEGATIVE)
[2017-11-04 11:39] LABS: HEPATITIS C VIRUS ABY INDEX 0.1 INDEX (<0.8)
== END 2017-11-02 20:08 | disposition home or self-care (01) ==
LOC: M ED 16:51
DX: Z77.21 Contact with and (suspected) exposure to potentially hazardous body fluids (principal); W46.1XXA Contact with contaminated hypodermic needle, initial encounter; Y92.89 Other specified places as the place of occurrence of the external cause; F17.200 Nicotine dependence, unspecified, uncomplicated; Z88.6 Allergy status to analgesic agent; Z88.8 Allergy status to other drugs, medicaments and biological substances; Z88.0 Allergy status to penicillin; Z79.899 Other long term (current) drug therapy; Z79.51 Long term (current) use of inhaled steroids
CPT/HCPCS: 90715

== ENCOUNTER 2017-12-01 10:13 | Emergency (ER) | payer OTHER | END 2017-12-01 12:00 | disposition home or self-care (01) | LOC: M ED 10:13 | DX: L03.115 Cellulitis of right lower limb (principal); J45.909 Unspecified asthma, uncomplicated; K21.9 Gastro-esophageal reflux disease without esophagitis; F17.200 Nicotine dependence, unspecified, uncomplicated; Z83.1 Family history of other infectious and parasitic diseases; Z88.6 Allergy status to analgesic agent; Z88.0 Allergy status to penicillin; Z88.8 Allergy status to other drugs, medicaments and biological substances; Z79.51 Long term (current) use of inhaled steroids; Z79.899 Other long term (current) drug therapy | CPT/HCPCS: 99283 ==

== ENCOUNTER → 2018-02-02 | Outpatient (CLI) | payer OTHER ==
[2018-02-02 11:11] LABS: BASO % 0.6 % (0.0-1.0); EOS # 0.1 10^3/uL (0.0-0.50); EOS % 1.6 % (0.0-3.0); HEMATOCRIT 40.5 % (36.0-47.0); HEMOGLOBIN 13.3 g/dl (12.0-15.5); IMMATURE GRANULOCYTE % 0.3 % (0-3.0); LYMPH % 31.4 % (24.0-44.0); MEAN CORPUSCULAR HEMOGLOBIN 27.1 pg (27.0-33.0); MEAN CORPUSCULAR HGB CONC 32.8 g/dl (32.0-36.5); MEAN CORPUSCULAR VOLUME 82.5 fl (80.0-96.0); MONO # 0.5 10^3/uL (0.0-0.8); MONO % 7.8 % (0.0-5.0); NEUTROPHILS # 3.7 10^3/uL (1.8-7.7); NEUTROPHILS % 58.3 % (36.0-66.0); PLATELET COUNT, AUTOMATED 299 10^3/uL (150-450); RED BLOOD COUNT 4.91 10^6/uL (4.00-5.40); RED CELL DISTRIBUTION WIDTH 13.7 % (11.5-14.5); WHITE BLOOD COUNT 6.4 10^3/uL (4.0-10.0)
== END ==
LOC: M LAB 10:34
DX: L03.116 Cellulitis of left lower limb (principal)
CPT/HCPCS: 86140

== ENCOUNTER → 2018-06-28 | Outpatient (REF) | payer OTHER ==
[2018-06-28 18:10] LABS: APPEARANCE, URINE CLEAR (CLEAR); BACTERIA, URINE AUTO NEGATIVE (NEGATIVE); BILIRUBIN, URINE AUTO NEGATIVE (NEGATIVE); BLOOD, URINE BLOOD 2+ (NEGATIVE); COLOR, URINE YELLOW (YELLOW); GLUCOSE, URINE (UA) AUTO NEGATIVE (NEGATIVE); KETONE, URINE AUTO NEGATIVE (NEGATIVE); LEUKOCYTE ESTERASE, URINE AUTO NEGATIVE (NEGATIVE); NITRITE, URINE AUTO NEGATIVE (NEGATIVE); PROTEIN, URINE AUTO NEGATIVE (NEGATIVE); RBC, URINE AUTO 4 /HPF (0-3); SPECIFIC GRAVITY URINE AUTO 1.026 (1.002-1.035); SQUAMOUS EPITHELIAL CELL UR AU 1 /HPF (0-6); UROBILINOGEN, URINE AUTO 0.2 mg/dL (0.0-2.0); WBC, URINE AUTO 0 /HPF (0-3)
== END ==
LOC: M LAB REF 17:03
DX: R39.15 Urgency of urination (principal)

== ENCOUNTER 2018-09-03 12:51 | Emergency (ER) | payer OTHER ==
[~2018-09-03] VITALS: Ht 160 cm; Wt 84.1 kg
[~2018-09-03 12:51] MED LIST changes: -ACET50TA PO; +CLAR10CA3 PO; +CLEO300C2 PO; +MAPA500T17 PO; +OMEP40CA2 PO; +RALT40TA PO; +TRUVTAB PO; +ZOFR4TAB14 PO
[2018-09-03] MEDS ORDERED: MEDR150I10 (13:07)
[2018-09-03] MEDS ORDERED: hydrOXYzine 50 MG TAB PO ONE (15:45)
[2018-09-03] MEDS ORDERED: METOCLOPRAMIDE INJ 10MG/2ML VIAL (J2765) IV ONE (15:45)
[2018-09-03 15:50] LABS: HEMATOCRIT 40.4 % (36.0-47.0); HEMOGLOBIN 13.5 g/dl (12.0-15.5); MEAN CORPUSCULAR HEMOGLOBIN 26.8 pg (27.0-33.0); MEAN CORPUSCULAR HGB CONC 33.4 g/dl (32.0-36.5); MEAN CORPUSCULAR VOLUME 80.3 fl (80.0-96.0); PLATELET COUNT, AUTOMATED 214 10^3/uL (150-450); RED BLOOD COUNT 5.03 10^6/uL (4.00-5.40); WHITE BLOOD COUNT 9.7 10^3/uL (4.0-10.0)
[2018-09-03 16:17] LABS: HCG, SERUM QUALITATIVE NEGATIVE (NEGATIVE)
[2018-09-03 16:24] LABS: BLOOD UREA NITROGEN 11 MG/DL (7-18); CALCIUM LEVEL 8.2 MG/DL (8.5-10.1); CARBON DIOXIDE LEVEL 26 MEQ/L (21-32); CHLORIDE LEVEL 108 MEQ/L (98-107); CREATININE FOR GFR 0.65 MG/DL (0.55-1.30); GLOMERULAR FILTRATION RATE > 60.0 (>60); GLUCOSE, FASTING 82 MG/DL (70-100); POTASSIUM SERUM 4.1 MEQ/L (3.5-5.1); SODIUM LEVEL 140 MEQ/L (136-145)
--- NOTE | 2018-09-03 17:08 | REP ---
MR angiography the brain without contrast: History: Facial extremity numbness followed by headache. Technique: 3-D [id number] MR angiography of the brain is acquired in the usual fashion and maximal intensity projection images were generated in rotational format about the vertical and horizontal axes. In addition, source axial T1-weighted images are viewed in cine mode. MR angiographic findings: The distal vertebral arteries are patent and co-dominant. Basilar artery is a little tortuous but widely patent. The posterior cerebral and superior cerebellar vessels are normal and symmetric. The distal internal carotid arteries are unremarkable. Anterior and middle cerebral arteries appear intact. There is no visible nichols aneurysm or arteriovenous malformation. Impression: Unremarkable MR angiography the brain. Electronically Signed by Ld Castellanos MD 09/03/2018 05:00 P
--- NOTE | 2018-09-03 17:11 | REP ---
MRI brain without contrast: History: Facial extremity numbness followed by headache. . Comparison study: Comparison CT brain October 11, 2016. Technique: Axial and sagittal imaging planes are utilized for T1 and T2-weighted scans. Sequences include spin-echo, fast spin echo, FLAIR, and diffusion weighted sequences. MRI findings: No bony calvarial lesion is seen. Craniocervical junction and upper cervical cord are normal in appearance. There is no MR evidence of significant paranasal sinus disease. No intraorbital abnormality is seen. The lateral, third, and fourth ventricles are normal in size and position. Tafoya-white differentiation pattern is intact above and below the tentorium. There is no evidence of intracranial hemorrhage. No mass, infarction, extra-axial fluid collection or midline shift is seen. No abnormal white matter lesion is seen. Impression: Negative noncontrast brain MRI study. Electronically Signed by Ld Castellanos MD 09/03/2018 05:03 P
[2018-09-03] MEDS ORDERED: NS 1,000 ML IV ONE (17:45)
[2018-09-03] MEDS ORDERED: ACETAMINOPHEN TAB 650MG DOSE (2X325MG) PO ONE (18:00)
[2018-09-03 19:03] VITALS: BP 129/73
== END 2018-09-03 19:13 | disposition home or self-care (01) ==
LOC: M ED 12:51
DX: R20.0 Anesthesia of skin (principal); R51 Headache; Z88.0 Allergy status to penicillin; Z88.8 Allergy status to other drugs, medicaments and biological substances; Z87.891 Personal history of nicotine dependence
CPT/HCPCS: 70544; 70551; 80048; 84443; 84703; 85027; 96361; 96374; 99284; J2765

== ENCOUNTER → 2019-02-09 | Outpatient (REF) | payer OTHER ==
[~2019-02-09] MED LIST changes: -MAPA500T17 PO; +MAPA500T2 PO; +MEDR150I10
[2019-02-16 00:07] LABS: HPV HYBRID CAPTURE II Positive (Negative)
== END ==
LOC: M LAB REF 17:11
PROVIDERS: ATTEND Obstetrics & Gynecology
DX: R87.610 Atypical squamous cells of undetermined significance on cytologic smear of cervix (ASC-US) (principal); B96.89 Other specified bacterial agents as the cause of diseases classified elsewhere; N76.0 Acute vaginitis

== ENCOUNTER → 2019-03-07 | Outpatient (CLI) | payer OTHER ==
[~2019-03-07] MED LIST changes: +AZIT-12 PO; +GABA600T4; +OMEP-218; -OMEP40CA2 PO; +OMEP40CA97 PO; +TESS100C PO; +TIZA4TAB4; +VITA500045
== END ==
LOC: M LAB 13:19
PROVIDERS: ATTEND Obstetrics & Gynecology
DX: Z11.3 Encounter for screening for infections with a predominantly sexual mode of transmission (principal); Z20.6 Contact with and (suspected) exposure to human immunodeficiency virus [HIV]

== ENCOUNTER → 2019-03-17 | Outpatient (REF) | payer OTHER ==
[~2019-03-17] MED LIST changes: -AZIT-12 PO; -GABA600T4; +OMEP40CA2 PO; -OMEP40CA97 PO; -TESS100C PO; -TIZA4TAB4
[2019-03-17 12:54] LABS: FREE T4 0.94 NG/DL (0.76-1.46); THYROID STIMULATING HORMONE 1.47 uIU/ML (0.358-3.740)
== END ==
LOC: M SFHCPLAZ 09:56
PROVIDERS: ATTEND Family Medicine
DX: L65.9 Nonscarring hair loss, unspecified (principal); R20.0 Anesthesia of skin

== ENCOUNTER 2019-03-18 11:48 | Emergency (ER) | payer OTHER ==
[~2019-03-18] VITALS: Ht 160 cm; Wt 71.8 kg
[~2019-03-18 11:48] MED LIST changes: -OMEP-218; -VITA500045
[2019-03-18] MEDS ORDERED: OMEP-218 (12:12)
[2019-03-18] MEDS ORDERED: VITA500045 (12:12)
[2019-03-18 15:52] VITALS: BP 111/64
--- NOTE | 2019-03-18 16:02 | REP ---
CT study of the cervical spine without contrast: History: Neck and low back pain. Cervical radiculopathy. Technique: Helical scanning is acquired and overlapping 2 mm high resolution axial images were generated and reviewed at bone and soft tissue window settings. Coronal and sagittal multiplanar re-formations images are generated. CT findings: There is no evidence of cervical spine element fracture. No skull base fracture is seen. Cervical vertebral body heights are preserved. Alignment is normal. There is reversal of normal cervical lordosis. Facet joints are normally aligned bilaterally at each cervical level on multiplanar re-formations images. There is no evidence of intraspinal or paraspinal hematoma. No extra vertebral abnormality is seen. Impression: Straightening and reversal of the normal cervical lordosis, otherwise negative CT study of the cervical spine without contrast. No fracture seen. Electronically Signed by Ld Castellanos MD 03/18/2019 03:53 P
--- NOTE | 2019-03-18 16:23 | REP ---
CT lumbar spine without contrast: History: Neck and low back pain. CT findings: Lumbar vertebral body heights are preserved. Alignment is normal. There is no evidence of fracture or collapse. There is no evidence of spondylolysis or spondylolisthesis. Disc spaces are maintained. No disc herniation or significant bulge is seen. No neural foraminal encroachment is appreciated. There is no CT evidence to suggest central canal stenosis. No paravertebral mass or other abnormalities seen. Impression: Negative CT study lumbar spine. Electronically Signed by Ld Castellanos MD 03/18/2019 08:22 P
--- NOTE | 2019-03-18 16:28 | REP ---
RIGHT ANKLE, FOUR VIEWS: ANKLE: There is no evidence of an acute fracture, dislocation or intrinsic bone disease. There is mild soft-tissue swelling. IMPRESSION: No fracture or dislocation. There is mild soft-tissue swelling. Electronically Signed by Osmin Tafoya MD 03/21/2019 01:07 P
== END 2019-03-18 17:05 | disposition home or self-care (01) ==
LOC: M ED 11:48
DX: M54.16 Radiculopathy, lumbar region (principal); M54.30 Sciatica, unspecified side; G89.29 Other chronic pain; M54.2 Cervicalgia; R22.41 Localized swelling, mass and lump, right lower limb; J45.909 Unspecified asthma, uncomplicated; K21.9 Gastro-esophageal reflux disease without esophagitis; H91.91 Unspecified hearing loss, right ear; Z79.899 Other long term (current) drug therapy; Z88.0 Allergy status to penicillin; Z88.8 Allergy status to other drugs, medicaments and biological substances; F17.210 Nicotine dependence, cigarettes, uncomplicated

== ENCOUNTER → 2019-03-26 | Outpatient (CLI) | payer OTHER ==
[~2019-03-26] MED LIST changes: +OMEP-218; +VITA500045
--- NOTE | 2019-03-27 10:01 | REP ---
LUMBOSACRAL SPINE: Three AP and lateral views of the lumbosacral spine are performed. There is no compression fracture or malalignment with normal lumbar lordosis. There is no spondylolysis or spondylolisthesis. Disc spaces are normal in thickness. Posterior elements are intact. IMPRESSION: Negative lumbosacral spine. Electronically Signed by Osmin Tafoya MD 03/27/2019 11:25 P
--- NOTE | 2019-03-28 18:43 | REPVR ---
EXAM: MR Cervical Spine Without Contrast EXAM DATE/TIME: 03/26/2019 2:10 PM CLINICAL HISTORY: 23 years old, female; Patient HX: Neck pain, bilateral arm numbness; Additional info: Neck pain, bilateral arm numbness (xr1/mr2) TECHNIQUE: Imaging protocol: Multiplanar magnetic resonance images of the cervical spine without contrast. COMPARISON: CT Spine,cervical w/o contrast 03/18/2019 3:33 PM FINDINGS: Vertebrae: There is no fracture. There is slight straightening of cervical curvature. Alignment is otherwise normal. STIR images demonstrate no evidence of marrow edema or marrow infiltrating lesion. Spinal cord: The spinal cord and cervical medullary junction are normal. No evidence of signal abnormality within the cord. C2-C3: No significant disc disease. No significant spinal stenosis. C3-C4: No significant disc disease. No significant spinal stenosis. C4-C5: No significant disc disease. No significant spinal stenosis. C5-C6: No significant disc disease. No significant spinal stenosis. C6-C7: No significant disc disease. No significant spinal stenosis. C7-T1: No significant disc disease. No significant spinal stenosis. Nasopharynx: The adenoids and tonsils are noted to be moderately enlarged. Soft tissues: There is no paraspinous or intraspinal soft tissue mass, hemorrhage or fluid collection. IMPRESSION: 1. No spinal stenosis or significant disc disease. 2. No spinal cord abnormality. Electronically signed by: Austin Vines On 03/28/2019 18:42:58 PM
== END ==
LOC: M RAD 12:12
PROVIDERS: ATTEND Family Medicine
DX: M54.2 Cervicalgia (principal)

== ENCOUNTER 2019-05-19 08:26 | Emergency (ER) | payer OTHER ==
[~2019-05-19] VITALS: Ht 160 cm; Wt 68.2 kg
[2019-05-19] MEDS ORDERED: ALBUTEROL SULFATE 2.5 MG/0.5 ML INH NEB SOLN As Ordered ONE (09:35)
[2019-05-19 10:03] LABS: BASO # 0.1 10^3/uL (0.0-0.2); BASO % 1.1 % (0.0-1.0); EOS # 0.7 10^3/uL (0.0-0.5); EOS % 7.2 % (0.0-3.0); HEMATOCRIT 43.7 % (36.0-47.0); LYMPH # 3.5 10^3/uL (1.5-5.0); LYMPH % 36.6 % (24.0-44.0); MEAN CORPUSCULAR HEMOGLOBIN 26.4 pg (27.0-33.0); MEAN CORPUSCULAR VOLUME 82.3 fl (80.0-96.0); MONO # 0.6 10^3/uL (0.0-0.8); MONO % 6.2 % (0.0-5.0); NEUTROPHILS # 4.7 10^3/uL (1.5-8.5); NEUTROPHILS % 48.6 % (36.0-66.0); PLATELET COUNT, AUTOMATED 303 10^3/uL (150-450); RED BLOOD COUNT 5.31 10^6/uL (4.00-5.40); WHITE BLOOD COUNT 9.7 10^3/uL (4.0-10.0)
[2019-05-19 10:22] LABS: BLOOD UREA NITROGEN 14 MG/DL (7-18); CALCIUM LEVEL 8.7 MG/DL (8.5-10.1); CARBON DIOXIDE LEVEL 23 MEQ/L (21-32); CHLORIDE LEVEL 109 MEQ/L (98-107); CK-MB VALUE MASS < 1.0 NG/ML (<3.6); CPK CREATINE PHOSPHOKINASE 66 U/L (26-192); CREATININE FOR GFR 0.66 MG/DL (0.55-1.30); GLOMERULAR FILTRATION RATE > 60.0 (>60); GLUCOSE, FASTING 83 MG/DL (70-100); MB/CK RELATIVE INDEX 1.52 (< OR =4); POTASSIUM SERUM 4.1 MEQ/L (3.5-5.1); SODIUM LEVEL 140 MEQ/L (136-145); TROPONIN I < 0.02 NG/ML (< 0.10)
--- NOTE | 2019-05-19 10:28 | REP ---
CHEST, TWO VIEWS: COMPARISON: 06/19/2017 There is no evidence of acute infiltrate. No pleural effusion is seen. The heart is normal in size. The mediastinal silhouette is unremarkable. The visualized osseous structures are intact. IMPRESSION: No acute pulmonary disease. Electronically Signed by Osmin Tafoya MD 05/19/2019 02:01 P
--- NOTE | 2019-05-19 11:42 | REP ---
Head CT without contrast: History: Vision complaints. Comparison study: Comparison brain MRI study September 03, 2018. CT findings: Bone window settings demonstrate an intact bony calvarium. There is no evidence of skull fracture or incidental bony calvarial lesion. The visualized paranasal sinuses appear clear. No intraorbital abnormality is seen. On soft tissue window setting images; the lateral, third, and fourth ventricles are normal in size and position. Tafoya-white differentiation pattern is normal above and below the tentorium. There are is no evidence of intracranial hemorrhage. No mass, edema, infarction, or midline shift is seen. No extra-axial fluid collection is appreciated. Impression: Negative noncontrast head CT. Electronically Signed by Ld Castellanos MD 05/19/2019 11:35 A
[2019-05-19] MEDS ORDERED: TESS100C PO (12:06)
[2019-05-19 12:09] VITALS: BP 117/71
--- NOTE | 2019-05-19 20:31 | ECGEPIP ---
[facility] - ED Test Date: 2019-05-19 Pat Name: GALI SALOMON Department: Room: - Gender: Female Clinic Administrator: ARTIE : 1995 Requested By: GARRY Ho PA-C Order Number: [id number] Reading MD: Petrona Katz Measurements Intervals [place] Rate: 66 P: 51 MO: 168 QRS: 76 QRSD: 88 T: 30 QT: 390 QTc: 412 Interpretive Statements SINUS RHYTHM WITH SINUS ARRHYTHMIA DECREASED RATE 01/18/16 Electronically Signed on 05-19-2019 20:31:24 EDT by Petrona Katz
== END 2019-05-19 12:15 | disposition home or self-care (01) ==
LOC: M ED 08:26
DX: J06.9 Acute upper respiratory infection, unspecified (principal); L40.0 Psoriasis vulgaris; R07.89 Other chest pain; J45.909 Unspecified asthma, uncomplicated; R51 Headache; K21.9 Gastro-esophageal reflux disease without esophagitis; H91.91 Unspecified hearing loss, right ear; F17.210 Nicotine dependence, cigarettes, uncomplicated; Z88.0 Allergy status to penicillin; Z88.6 Allergy status to analgesic agent; Z88.8 Allergy status to other drugs, medicaments and biological substances; Z79.899 Other long term (current) drug therapy; Z79.51 Long term (current) use of inhaled steroids

== ENCOUNTER → 2019-06-10 | Outpatient (REF) | payer OTHER ==
[~2019-06-10] MED LIST changes: +TESS100C PO
== END ==
LOC: M LAB REF 14:21
PROVIDERS: ATTEND Obstetrics & Gynecology
DX: R87.612 Low grade squamous intraepithelial lesion on cytologic smear of cervix (LGSIL) (principal)

== ENCOUNTER 2019-08-15 18:47 | Emergency (ER) | payer OTHER ==
[~2019-08-15] VITALS: Ht 160 cm; Wt 65.9 kg
[~2019-08-15 18:47] MED LIST changes: -OMEP40CA2 PO; +OMEP40CA97 PO
[2019-08-15] MEDS ORDERED: GABA600T4 (18:54)
[2019-08-15] MEDS ORDERED: TIZA4TAB4 (18:54)
[2019-08-15] MEDS ORDERED: IPRATROPIUM 0.5MG/ALBUTEROL 2.5MG INH SOL UD 3ML (DUONEB)(J7620) NEB ONE (20:00)
[2019-08-15] MEDS ORDERED: AZIT-12 PO (21:28)
[2019-08-15 21:33] VITALS: BP 131/72
--- NOTE | 2019-08-16 09:29 | REP ---
CHEST, TWO VIEWS: There is no evidence of acute infiltrate. No pleural effusion is seen. The heart is normal in size. The mediastinal silhouette is unremarkable. The visualized osseous structures are intact. IMPRESSION: No acute pulmonary disease. Electronically Signed by Osmin Tafoya MD 08/17/2019 10:24 A
== END 2019-08-15 21:34 | disposition home or self-care (01) ==
LOC: M ED 18:47
DX: J20.9 Acute bronchitis, unspecified (principal); J45.909 Unspecified asthma, uncomplicated; K21.9 Gastro-esophageal reflux disease without esophagitis; Z79.899 Other long term (current) drug therapy; Z88.0 Allergy status to penicillin; Z88.8 Allergy status to other drugs, medicaments and biological substances; Z79.3 Long term (current) use of hormonal contraceptives; F17.210 Nicotine dependence, cigarettes, uncomplicated

== ENCOUNTER 2019-10-25 14:38 | Emergency (ER) | payer OTHER ==
[~2019-10-25] VITALS: Ht 157.5 cm; Wt 65.7 kg
[~2019-10-25 14:38] MED LIST changes: +AZIT-12 PO; +GABA600T4; +TIZA4TAB4
[2019-10-25] MEDS ORDERED: SUMAtriptan SUCCINATE 25 MG TAB PO ONE (16:45)
[2019-10-25] MEDS ORDERED: ONDANSETRON 4 MG ORAL DISINTEGRATING TAB (Q0162 PER 1MG) PO ONE (16:45)
[2019-10-25] MEDS ORDERED: NS 1,000 ML IV ONE (16:45)
--- NOTE | 2019-10-25 17:13 | REPVR ---
PROCEDURE INFORMATION: Exam: CT Head Without Contrast Exam date and time: 10/25/2019 4:32 PM Age: 24 years old Clinical indication: Other: Syncope TECHNIQUE: Imaging protocol: Computed tomography of the head without contrast. Radiation optimization: All CT scans at this facility use at least one of these dose optimization techniques: automated exposure control; mA and/or kV adjustment per patient size (includes targeted exams where dose is matched to clinical indication); or iterative reconstruction. COMPARISON: CT Head without contrast 05/19/2019 10:35 AM FINDINGS: Brain: Normal. No hemorrhage. Unremarkable white matter. No mass effect. Ventricles: Normal. No ventriculomegaly. Bones/joints: Unremarkable. No acute fracture. Sinuses: Visualized sinuses are unremarkable. No fluid levels. Mastoid air cells: Patient has had prior right mastoid surgery. Soft tissues: Unremarkable. IMPRESSION: No acute intracranial findings identified. Please refer to incidental findings in body of report. Electronically signed by: Leonard Parikh On 10/25/2019 17:13:24 PM
[2019-10-25 17:56] LABS: BASO # 0.1 10^3/uL (0.0-0.2); BASO % 0.6 % (0.0-1.0); EOS # 0.1 10^3/uL (0.0-0.5); EOS % 1.5 % (0.0-3.0); HEMOGLOBIN 13.5 g/dl (12.0-15.5); LYMPH # 3.9 10^3/uL (1.5-5.0); MEAN CORPUSCULAR HEMOGLOBIN 27.2 pg (27.0-33.0); MEAN CORPUSCULAR HGB CONC 32.9 g/dl (32.0-36.5); MEAN CORPUSCULAR VOLUME 82.5 fl (80.0-96.0); MONO # 0.5 10^3/uL (0.0-0.8); MONO % 5.6 % (0.0-5.0); NEUTROPHILS # 4.9 10^3/uL (1.5-8.5); PLATELET COUNT, AUTOMATED 251 10^3/uL (150-450); RED BLOOD COUNT 4.97 10^6/uL (4.00-5.40); WHITE BLOOD COUNT 9.6 10^3/uL (4.0-10.0)
[2019-10-25 18:20] LABS: INFLUENZA A AMPLIFICATION NEGATIVE (NEGATIVE); INFLUENZA B AMPLIFICATION NEGATIVE (NEGATIVE)
[2019-10-25 18:27] LABS: BLOOD UREA NITROGEN 11 MG/DL (7-18); C REACTIVE PROTEIN QUANTITATIV < 0.30 MG/DL (0.00-0.30); CALCIUM LEVEL 8.6 MG/DL (8.5-10.1); CARBON DIOXIDE LEVEL 25 MEQ/L (21-32); CHLORIDE LEVEL 112 MEQ/L (98-107); CREATININE FOR GFR 0.55 MG/DL (0.55-1.30); FREE T4 1.02 NG/DL (0.76-1.46); GLOMERULAR FILTRATION RATE > 60.0 (>60); GLUCOSE, FASTING 77 MG/DL (70-100); MAGNESIUM LEVEL 1.8 MG/DL (1.8-2.4); POTASSIUM SERUM 4.2 MEQ/L (3.5-5.1); SODIUM LEVEL 140 MEQ/L (136-145); THYROID STIMULATING HORMONE 0.612 uIU/ML (0.358-3.740)
[2019-10-25] MEDS ORDERED: IMIT50TA PO (18:31)
[2019-10-25 18:49] VITALS: BP 117/69
[2019-10-25 19:07] LABS: ERYTHROCYTE SEDIMENTATION RATE 5 mm/hr (0-20)
== END 2019-10-25 18:57 | disposition home or self-care (01) ==
LOC: M ED 14:38
DX: G43.909 Migraine, unspecified, not intractable, without status migrainosus (principal); J45.909 Unspecified asthma, uncomplicated; K21.9 Gastro-esophageal reflux disease without esophagitis; Z88.0 Allergy status to penicillin; Z88.6 Allergy status to analgesic agent; Z88.8 Allergy status to other drugs, medicaments and biological substances; F17.210 Nicotine dependence, cigarettes, uncomplicated; Z79.899 Other long term (current) drug therapy; Z79.51 Long term (current) use of inhaled steroids
CPT/HCPCS: 70450; 80048; 83735; 84439; 84443; 85025; 85652; 86140; 87502; 96360; 96361; 99284; Q0162

== ENCOUNTER → 2019-11-29 | Outpatient (REF) | payer OTHER ==
[~2019-11-29] MED LIST changes: +IMIT50TA PO
== END ==
LOC: M SFHCPLAZ 16:41
PROVIDERS: ATTEND Physician Assistant
DX: R42 Dizziness and giddiness (principal)

== ENCOUNTER 2021-02-06 01:27 | Emergency (ER) | payer OTHER ==
[~2021-02-06] VITALS: Ht 162.6 cm; Wt 69.6 kg
[~2021-02-06 01:27] MED LIST changes: +EMTR1TAB16 PO; -TRUVTAB PO
[2021-02-06] MEDS ORDERED: ACETAMINOPHEN TAB 650MG DOSE (2X325MG) PO ONE (02:25)
[2021-02-06] MEDS ORDERED: NS 1,000 ML IV ONE (02:25)
[2021-02-06 03:53] LABS: BASO # 0.1 10^3/uL (0.0-0.2); BASO % 0.5 % (0.0-1.0); EOS # 0.1 10^3/uL (0.0-0.5); EOS % 0.5 % (0.0-3.0); HEMATOCRIT 43.5 % (36.0-47.0); LYMPH # 3.3 10^3/uL (1.5-5.0); LYMPH % 36.4 % (24.0-44.0); MEAN CORPUSCULAR HEMOGLOBIN 27.3 pg (27.0-33.0); MEAN CORPUSCULAR HGB CONC 32.2 g/dl (32.0-36.5); MEAN CORPUSCULAR VOLUME 84.8 fl (80.0-96.0); MONO # 0.7 10^3/uL (0.0-0.8); MONO % 7.2 % (2.0-8.0); NEUTROPHILS % 55.2 % (36.0-66.0); PLATELET COUNT, AUTOMATED 249 10^3/uL (150-450); RED BLOOD COUNT 5.13 10^6/uL (4.00-5.40); WHITE BLOOD COUNT 9.1 10^3/uL (4.0-10.0)
[2021-02-06 04:11] LABS: BLOOD UREA NITROGEN 15 MG/DL (7-18); CALCIUM LEVEL 8.5 MG/DL (8.5-10.1); CARBON DIOXIDE LEVEL 25 MEQ/L (21-32); CHLORIDE LEVEL 111 MEQ/L (98-107); CREATININE FOR GFR 0.52 MG/DL (0.55-1.30); GLOMERULAR FILTRATION RATE > 60.0 (>60); GLUCOSE, FASTING 76 MG/DL (70-100); SODIUM LEVEL 142 MEQ/L (136-145)
[2021-02-06 04:22] LABS: HCG, SERUM QUALITATIVE NEGATIVE (NEGATIVE)
[2021-02-06] MEDS ORDERED: ISOVUE-370 76% 100ML VIAL As Ordered ONE (04:25)
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
[2021-02-06 06:50] VITALS: BP 109/72
--- NOTE | 2021-02-06 10:47 | ED PDOC ---
Post-Departure Follow-Up ct chest faxed to [facility] for fu Savanna Michelle MD Feb 06, 2021 10:47
== END 2021-02-06 06:50 | disposition home or self-care (01) ==
LOC: M ED 01:27
DX: S80.11XA Contusion of right lower leg, initial encounter (principal); M54.9 Dorsalgia, unspecified; V43.92XA Unspecified car occupant injured in collision with other type car in traffic accident, initial encounter; Y92.9 Unspecified place or not applicable; Y93.89 Activity, other specified; Y99.9 Unspecified external cause status; J45.909 Unspecified asthma, uncomplicated; F17.200 Nicotine dependence, unspecified, uncomplicated; Z79.899 Other long term (current) drug therapy; Z88.0 Allergy status to penicillin; Z88.8 Allergy status to other drugs, medicaments and biological substances; Z88.6 Allergy status to analgesic agent
CPT/HCPCS: 70450; 71260; 72125; 72128; 72131; 73590; 74177; 80048; 84703; 85025; 93041; 94760; 96360; 99284; Q9967

== ENCOUNTER → 2021-07-29 | Outpatient (CLI) | payer OTHER ==
[~2021-07-29] MED LIST changes: +ISOVUE-370 76% 100ML VIAL ONE; +OMEP40CA4 PO; -OMEP40CA97 PO
--- NOTE | 2021-07-29 11:23 | REP ---
INDICATION: ABNORMAL FINDING ON IMAGING COMPARISON: 02/06/2021 TECHNIQUE: Standard helical technique after the intravenous administration of 100 cc Isovue 370 FINDINGS: There is anterior mediastinal soft tissue density status quo. There is no evidence of mediastinal or hilar adenopathy. There are no pleural or pericardial effusions. The imaged upper abdomen and imaged osseous structures are again seen to be within normal limits. Evaluation of the lung amador shows no abnormal nodules, masses, or opacities. IMPRESSION: 1. Likely residual thymic tissue unchanged from the prior exam. 2. No evidence of adenopathy. 3. Other findings as described above. <Electronically signed by Sean Corado > 07/29/21 [id number]
== END ==
LOC: M PLAIMG 08:47
PROVIDERS: ATTEND Pediatrics
DX: R91.8 Other nonspecific abnormal finding of lung field (principal)

== ENCOUNTER → 2022-03-20 | Outpatient (CLI) | payer OTHER ==
[~2022-03-20] MED LIST changes: -ISOVUE-370 76% 100ML VIAL ONE; +OMEP-173; -OMEP-218; +TIZA10TA; -TIZA4TAB4
[2022-03-20 13:41] LABS: BASO % 0.4 % (0.0-1.0); EOS # 0.1 10^3/uL (0.0-0.5); EOS % 0.9 % (0.0-3.0); HEMATOCRIT 39.6 % (36.0-47.0); HEMOGLOBIN 13.1 g/dl (12.0-15.5); LYMPH # 2.2 10^3/uL (1.5-5.0); LYMPH % 28.8 % (24.0-44.0); MEAN CORPUSCULAR HEMOGLOBIN 27.5 pg (27.0-33.0); MEAN CORPUSCULAR HGB CONC 33.1 g/dl (32.0-36.5); MEAN CORPUSCULAR VOLUME 83.2 fl (80.0-96.0); MONO # 0.6 10^3/uL (0.0-0.8); MONO % 7.3 % (2.0-8.0); NEUTROPHILS # 4.8 10^3/uL (1.5-8.5); NEUTROPHILS % 62.3 % (36.0-66.0); PLATELET COUNT, AUTOMATED 234 10^3/uL (150-450); RED BLOOD COUNT 4.76 10^6/uL (4.00-5.40); WHITE BLOOD COUNT 7.7 10^3/uL (4.0-10.0)
[2022-03-20 14:59] LABS: HEPATITIS C VIRUS ABY INDEX 0.1 INDEX (<0.8); HIV 1&2 SCREEN CENTAUR NEGATIVE (NEGATIVE)
== END ==
LOC: M PLALAB 12:08
PROVIDERS: ATTEND Advanced Practice Midwife
DX: O99.511 Diseases of the respiratory system complicating pregnancy, first trimester (principal)

== ENCOUNTER → 2022-05-23 | Outpatient (CLI) | payer OTHER | LOC: M WHC 08:29 | PROVIDERS: ATTEND Obstetrics & Gynecology | DX: Z34.92 Encounter for supervision of normal pregnancy, unspecified, second trimester (principal) ==

== ENCOUNTER → 2022-06-04 | Outpatient (REF) | payer OTHER ==
[2022-06-04 16:36] LABS: GC DNA AMPLIFICATION NEGATIVE (NEGATIVE)
== END ==
LOC: M SFHCWAGY 13:04
PROVIDERS: ATTEND Advanced Practice Midwife
DX: O99.511 Diseases of the respiratory system complicating pregnancy, first trimester (principal)

== ENCOUNTER → 2022-07-02 | Outpatient (CLI) | payer OTHER ==
[2022-07-02 16:21] LABS: HEMATOCRIT 34.9 % (36.0-47.0); HEMOGLOBIN 11.6 g/dl (12.0-15.5); MEAN CORPUSCULAR HEMOGLOBIN 27.3 pg (27.0-33.0); MEAN CORPUSCULAR HGB CONC 33.2 g/dl (32.0-36.5); MEAN CORPUSCULAR VOLUME 82.1 fl (80.0-96.0); PLATELET COUNT, AUTOMATED 219 10^3/uL (150-450); RED BLOOD COUNT 4.25 10^6/uL (4.00-5.40); WHITE BLOOD COUNT 9.8 10^3/uL (4.0-10.0)
== END ==
LOC: M PLALAB 13:26
PROVIDERS: ATTEND Advanced Practice Midwife
DX: O99.512 Diseases of the respiratory system complicating pregnancy, second trimester (principal)

== ENCOUNTER → 2022-07-29 | Outpatient (REF) | payer OTHER ==
[2022-07-29 19:21] LABS: GC DNA AMPLIFICATION NEGATIVE (NEGATIVE)
== END ==
LOC: M SFHCWAGY 17:00
PROVIDERS: ATTEND Advanced Practice Midwife
DX: Z34.93 Encounter for supervision of normal pregnancy, unspecified, third trimester (principal)

== ENCOUNTER → 2022-09-09 | Outpatient (REF) | payer OTHER | LOC: M PLALAB 16:35 | PROVIDERS: ATTEND Advanced Practice Midwife | DX: Z34.93 Encounter for supervision of normal pregnancy, unspecified, third trimester (principal) ==

== ENCOUNTER 2022-10-06 11:03 | Inpatient (IN) | payer OTHER ==
[2022-10-06] VITALS (9 sets, daily range): BP systolic 118–151; BP diastolic 60–89
[~2022-10-06] VITALS: Ht 160 cm; Wt 79.4 kg
[2022-10-06] MEDS: PRENATAL VITAMINS CHEWABLE TABLET PO SCH (09:00)
[2022-10-06] MEDS ORDERED: HOME MED LIST COMPLETE! XX SCH (11:25)
[2022-10-06] MEDS ORDERED: LIDOCAINE 1% MDV 20ML VIAL INFIL PRN (11:35)
[2022-10-06] MEDS ORDERED: OXYTOCIN DRIP 30 UNITS in IV 1 EA IV PRN (11:35)
[2022-10-06] MEDS ORDERED: CARBOPROST TROMETHAMINE 250 MCG/ML AMP IM PRN (11:35)
[2022-10-06] MEDS ORDERED: METHYLERGONOVINE MALEATE 0.2MG/ML 1ML VIAL IM PRN (11:35)
[2022-10-06] MEDS ORDERED: OXYTOCIN INJ 10UNITS/ML 1ML VIAL IM PRN (11:35)
[2022-10-06] MEDS ORDERED: TRANEXAMIC ACID INJection 1,000 MG in NS 100 ML IV PRN (11:35)
[2022-10-06] MEDS ORDERED: OXYTOCIN 30UNITS IN 0.9% NaCl 500ML IV BAG As Ordered ONE (11:52)
[2022-10-06 11:59] LABS: HEMOGLOBIN 13.7 g/dl (12.0-15.5); MEAN CORPUSCULAR HEMOGLOBIN 26.5 pg (27.0-33.0); MEAN CORPUSCULAR HGB CONC 33.4 g/dl (32.0-36.5); MEAN CORPUSCULAR VOLUME 79.3 fl (80.0-96.0); PLATELET COUNT, AUTOMATED 244 10^3/uL (150-450); RED BLOOD COUNT 5.17 10^6/uL (4.00-5.40); WHITE BLOOD COUNT 15.2 10^3/uL (4.0-10.0)
[2022-10-06 12:21] LABS: CORD GAS ABE V -12.6; CORD GAS HCO3 V 17.1 MEQ/L; CORD GAS O2 SAT V 31.3 %; CORD GAS PCO2 V 54.6 mmHg; CORD GAS PH V 7.113 UNITS; CORD GAS PO2 V 18.7 mmHg; CORD GAS SBC V 13.5 MEQ/L; CORD GAS TCO2 V 18.8 MEQ/L
[2022-10-06 12:22] LABS: CORD GAS ABE A -13.9; CORD GAS HCO3 A 15.9 MEQ/L; CORD GAS O2 SAT A 22.5 %; CORD GAS PCO2 A 52.9 mmHg; CORD GAS PH A 7.096 UNITS; CORD GAS SBC A 12.5 MEQ/L; CORD GAS TCO2 A 17.5 MEQ/L
[2022-10-06] MEDS ORDERED: ACETAMINOPHEN 500 MG TAB PO PRN (14:25)
[2022-10-06] MEDS ORDERED: ANUSOL HC CREAM 30GM TOP PRN (14:25)
[2022-10-06] MEDS ORDERED: ACETAMINOPHEN TAB 650MG DOSE (2X325MG) PO PRN (14:25)
[2022-10-06] MEDS ORDERED: RHOGAM 300MCG (1500IU) INJ IM SCH (14:25)
[2022-10-06] MEDS ORDERED: DOCUSATE SODIUM 100MG CAPSULE PO PRN (14:25)
[2022-10-06] MEDS ORDERED: MOM 30ML SUSPENSION UDC PO PRN (14:25)
[2022-10-06] MEDS ORDERED: DIBUCAINE 1% OINTMENT 30GM TOP PRN (14:25)
[2022-10-07 05:59] VITALS: BP 114/61
[2022-10-07] MEDS: PRENATAL VITAMINS CHEWABLE TABLET PO SCH (08:41)
[2022-10-07 08:50] VITALS: BP 141/84
[2022-10-07 18:00] VITALS: BP 134/85
[2022-10-08] MEDS: PRENATAL VITAMINS CHEWABLE TABLET PO SCH (08:32)
[2022-10-08] MEDS ORDERED: MEASLES,MUMPS,RUBELLA VACCINE INJ (MMR-II) SC.IMMUN ONE (09:00)
== END 2022-10-08 14:25 | disposition home or self-care (01) | DRG 560 ==
LOC: M LDO 11:03 → M LDI 11:33 → M OBS 15:34
PROVIDERS: ADMIT Advanced Practice Midwife; ATTEND Advanced Practice Midwife
PROC: 10D07Z6 Extraction of Products of Conception, Vacuum, Via Natural or Artificial Opening (ICD-10-PCS; principal; 2022-10-06)
PROC: 10907ZC Drainage of Amniotic Fluid, Therapeutic from Products of Conception, Via Natural or Artificial Opening (ICD-10-PCS; 2022-10-06)
DX: O99.52 Diseases of the respiratory system complicating childbirth (principal); F17.210 Nicotine dependence, cigarettes, uncomplicated; J45.909 Unspecified asthma, uncomplicated; Z3A.40 40 weeks gestation of pregnancy; L40.0 Psoriasis vulgaris; Z88.0 Allergy status to penicillin; Z88.6 Allergy status to analgesic agent; Z88.8 Allergy status to other drugs, medicaments and biological substances; Z79.899 Other long term (current) drug therapy; O76 Abnormality in fetal heart rate and rhythm complicating labor and delivery; Z37.0 Single live birth; O99.334 Smoking (tobacco) complicating childbirth; O99.72 Diseases of the skin and subcutaneous tissue complicating childbirth

== ENCOUNTER 2022-12-19 15:20 | Emergency (ER) | payer OTHER ==
[~2022-12-19] VITALS: Ht 160 cm; Wt 77.3 kg
[2022-12-19] MEDS ORDERED: OFLOSO (15:31)
[2022-12-19] MEDS ORDERED: LevoFLOXacin 750 MG TABLET PO ONE (16:50)
[2022-12-19] MEDS ORDERED: LEVO750T14 PO (16:50)
[2022-12-19] MEDS ORDERED: CIPR7.5D5 OTIC (16:51)
[2022-12-19 16:54] VITALS: BP 124/77
== END 2022-12-19 17:04 | disposition home or self-care (01) ==
LOC: M ED 15:20
DX: H66.91 Otitis media, unspecified, right ear (principal); H60.91 Unspecified otitis externa, right ear; G43.909 Migraine, unspecified, not intractable, without status migrainosus; F17.200 Nicotine dependence, unspecified, uncomplicated; F12.90 Cannabis use, unspecified, uncomplicated; Z88.0 Allergy status to penicillin; Z88.6 Allergy status to analgesic agent; Z88.8 Allergy status to other drugs, medicaments and biological substances; Z79.899 Other long term (current) drug therapy

== ENCOUNTER 2022-12-24 11:35 | Inpatient (IN) | payer OTHER ==
[~2022-12-24] VITALS: Ht 160 cm; Wt 75.5 kg
[~2022-12-24 11:35] MED LIST changes: +CIPR7.5D5 OTIC; +LEVO750T14 PO; +OFLOSO
[2022-12-24 13:03] VITALS: BP 129/81
[2022-12-24] MEDS ORDERED: VANCOMYCIN HCL 750 MG, VIAL MATE ADAPTER 1 EACH in NS 250 ML IV SCH (13:40)
[2022-12-24] MEDS ORDERED: ALBUTEROL 90 MCG/ACT 8GM HFA INHALER INH PRN (13:50)
[2022-12-24] MEDS: metroNIDAZOLE 500 MG in IV 1 EA IV SCH ×2 (15:13→23:14)
[2022-12-24] MEDS: ACETAMINOPHEN TAB 650MG DOSE (2X325MG) PO PRN ×2 (15:13→23:16)
[2022-12-24 15:35] VITALS: BP 120/69
[2022-12-24] MEDS ORDERED: MORPHINE 2 MG/ML 1ML VIAL IV PRN (15:40)
[2022-12-24 15:55] LABS: HEMOGLOBIN 13.2 g/dl (12.0-15.5); MEAN CORPUSCULAR HEMOGLOBIN 26.5 pg (27.0-33.0); MEAN CORPUSCULAR HGB CONC 32.2 g/dl (32.0-36.5); MEAN CORPUSCULAR VOLUME 82.3 fl (80.0-96.0); PLATELET COUNT, AUTOMATED 325 10^3/uL (150-450); RED BLOOD COUNT 4.98 10^6/uL (4.00-5.40); WHITE BLOOD COUNT 10.1 10^3/uL (4.0-10.0)
[2022-12-24] MEDS ORDERED: VANCOMYCIN HCL 1,000 MG, VIAL MATE ADAPTER 1 EACH in D5W 250 ML IV ONE (16:00)
[2022-12-24 16:22] LABS: HCG, SERUM QUALITATIVE NEGATIVE (NEGATIVE)
[2022-12-24 16:23] LABS: ALBUMIN 2.7 G/DL (3.2-5.2); ALKALINE PHOSPHATASE 142 U/L (46-116); ALT/SGPT < 9 U/L (7.0-40); AST/SGOT 10 U/L (<34); BILIRUBIN,TOTAL 0.2 MG/DL (0.3-1.2); BLOOD UREA NITROGEN 11 MG/DL (9-23); CALCIUM LEVEL 8.3 MG/DL (8.5-10.1); CARBON DIOXIDE LEVEL 24 MMOL/L (20-31); CHLORIDE LEVEL 107 MMOL/L (98-107); CREATININE FOR GFR 0.59 MG/DL (0.55-1.30); GLOMERULAR FILTRATION RATE > 60.0 (>60); GLUCOSE, FASTING 64 MG/DL (60-100); HCG, SERUM QUANTITATIVE < 2.6 MIU/ML (<4.2); POTASSIUM SERUM 4.1 MMOL/L (3.5-5.1); SODIUM LEVEL 138 MMOL/L (136-145); TOTAL PROTEIN 6.1 G/DL (5.7-8.2)
[2022-12-24] MEDS ORDERED: OFLOSO OTIC (17:13)
[2022-12-24] MEDS ORDERED: D3 S1CAP3 PO (17:13)
[2022-12-24] MEDS ORDERED: OMEP1CAP73 PO (17:13)
[2022-12-24] MEDS ORDERED: SUMA25TA3 PO (17:13)
[2022-12-24] MEDS ORDERED: VENTAER INH (17:13)
[2022-12-24] MEDS ORDERED: CIPR7.5D5 OTIC (17:13)
[2022-12-24] MEDS ORDERED: BREO1INH PO (17:13)
[2022-12-24] MEDS ORDERED: HOME MED LIST COMPLETE! XX SCH (17:20)
[2022-12-24] MEDS ORDERED: PROHANCE 279.3MG/ML 15ML VIAL As Ordered ONE (17:33)
[2022-12-24] MEDS: SYMBICORT 160/4.5MCG INHALER 6GM INH SCH (19:01)
[2022-12-24] MEDS: VANCOMYCIN HCL 1,000 MG, VIAL MATE ADAPTER 1 EACH in D5W 250 ML IV SCH (19:53)
[2022-12-24 20:07] VITALS: BP 131/77
[2022-12-25] VITALS (8 sets, daily range): BP systolic 111–136; BP diastolic 69–84
[2022-12-25] MEDS: VANCOMYCIN HCL 1,000 MG, VIAL MATE ADAPTER 1 EACH in D5W 250 ML IV SCH ×3 (04:24→20:18)
[2022-12-25 06:29] LABS: HEMATOCRIT 38.2 % (36.0-47.0); HEMOGLOBIN 12.3 g/dl (12.0-15.5); MEAN CORPUSCULAR HEMOGLOBIN 26.4 pg (27.0-33.0); MEAN CORPUSCULAR HGB CONC 32.2 g/dl (32.0-36.5); PLATELET COUNT, AUTOMATED 302 10^3/uL (150-450); RED BLOOD COUNT 4.66 10^6/uL (4.00-5.40); WHITE BLOOD COUNT 8.3 10^3/uL (4.0-10.0)
[2022-12-25] MEDS: metroNIDAZOLE 500 MG in IV 1 EA IV SCH ×3 (06:41→22:59)
[2022-12-25 06:53] LABS: ALBUMIN 2.6 G/DL (3.2-5.2); ALKALINE PHOSPHATASE 130 U/L (46-116); ALT/SGPT < 9 U/L (7.0-40); AST/SGOT 10 U/L (<34); BILIRUBIN,TOTAL 0.2 MG/DL (0.3-1.2); BLOOD UREA NITROGEN 11 MG/DL (9-23); CALCIUM LEVEL 8.2 MG/DL (8.5-10.1); CARBON DIOXIDE LEVEL 26 MMOL/L (20-31); CHLORIDE LEVEL 107 MMOL/L (98-107); CREATININE FOR GFR 0.63 MG/DL (0.55-1.30); GLOMERULAR FILTRATION RATE > 60.0 (>60); GLUCOSE, FASTING 88 MG/DL (60-100); MAGNESIUM LEVEL 1.7 MG/DL (1.8-2.4); POTASSIUM SERUM 3.7 MMOL/L (3.5-5.1); SODIUM LEVEL 138 MMOL/L (136-145); TOTAL PROTEIN 5.9 G/DL (5.7-8.2)
[2022-12-25] MEDS ORDERED: MAG SULF 1GM/100ML (MAG RUN) 1 GM in IV 1 EA IV ONE (07:20)
[2022-12-25] MEDS: SYMBICORT 160/4.5MCG INHALER 6GM INH SCH ×2 (07:41→20:31)
[2022-12-25] MEDS: OMEPRAZOLE 20MG CAP PO SCH (08:00)
[2022-12-25] MEDS: ACETAMINOPHEN TAB 650MG DOSE (2X325MG) PO PRN (10:13)
[2022-12-25] MEDS ORDERED: propofoL 200 MG/20 ML VIAL As Ordered ONE ×3 (14:46→15:09)
[2022-12-25] MEDS ORDERED: LIDOCAINE 2% 100MG/5ML SDV (FOR ANES.) As Ordered ONE (14:46)
[2022-12-25] MEDS ORDERED: KETOROLAC 60MG 2ML VIAL As Ordered ONE (14:54)
[2022-12-25] MEDS ORDERED: fentaNYL 100 MCG/2 ML INJECTION As Ordered ONE (14:55)
[2022-12-25] MEDS: LR 1,000 ML IV SCH (16:47)
[2022-12-26 02:20] VITALS: BP 114/72
[2022-12-26] MEDS: VANCOMYCIN HCL 1,000 MG, VIAL MATE ADAPTER 1 EACH in D5W 250 ML IV SCH ×2 (04:54→11:43)
[2022-12-26] MEDS: LR 1,000 ML IV SCH (04:55)
[2022-12-26 05:59] LABS: BASO % 0.6 % (0.0-1.0); EOS # 0.1 10^3/uL (0.0-0.5); EOS % 1.4 % (0.0-3.0); HEMOGLOBIN 11.5 g/dl (12.0-15.5); LYMPH # 2.8 10^3/uL (1.5-5.0); LYMPH % 42.5 % (24.0-44.0); MEAN CORPUSCULAR HEMOGLOBIN 26.4 pg (27.0-33.0); MEAN CORPUSCULAR HGB CONC 31.9 g/dl (32.0-36.5); MEAN CORPUSCULAR VOLUME 82.6 fl (80.0-96.0); MONO # 0.6 10^3/uL (0.0-0.8); MONO % 9.9 % (2.0-8.0); NEUTROPHILS # 2.9 10^3/uL (1.5-8.5); NEUTROPHILS % 45.1 % (36.0-66.0); PLATELET COUNT, AUTOMATED 279 10^3/uL (150-450); RED BLOOD COUNT 4.36 10^6/uL (4.00-5.40); WHITE BLOOD COUNT 6.5 10^3/uL (4.0-10.0)
[2022-12-26 06:32] LABS: ALBUMIN 2.4 G/DL (3.2-5.2); ALKALINE PHOSPHATASE 127 U/L (46-116); ALT/SGPT < 9 U/L (7.0-40); AST/SGOT 9 U/L (<34); BILIRUBIN,TOTAL 0.2 MG/DL (0.3-1.2); BLOOD UREA NITROGEN 13 MG/DL (9-23); CARBON DIOXIDE LEVEL 24 MMOL/L (20-31); CHLORIDE LEVEL 109 MMOL/L (98-107); CREATININE FOR GFR 0.61 MG/DL (0.55-1.30); GLOMERULAR FILTRATION RATE > 60.0 (>60); GLUCOSE, FASTING 95 MG/DL (60-100); MAGNESIUM LEVEL 1.8 MG/DL (1.8-2.4); POTASSIUM SERUM 4.1 MMOL/L (3.5-5.1); SODIUM LEVEL 141 MMOL/L (136-145)
[2022-12-26 06:57] VITALS: BP 115/73
[2022-12-26 07:00] VITALS: BP 118/78
[2022-12-26] MEDS: SYMBICORT 160/4.5MCG INHALER 6GM INH SCH (07:37)
[2022-12-26] MEDS: OMEPRAZOLE 20MG CAP PO SCH (08:01)
[2022-12-26] MEDS: metroNIDAZOLE 500 MG in IV 1 EA IV SCH (08:03)
[2022-12-26] MEDS ORDERED: LEVO1TAB40 PO (13:10)
[2022-12-26] MEDS ORDERED: METR-265 PO (13:10)
[2022-12-26] MEDS ORDERED: BACI1CAP PO (13:10)
== END 2022-12-26 14:20 | disposition home or self-care (01) | DRG 115 ==
LOC: M PCU 12:22 → M MS5PR 12-25 10:20
PROVIDERS: ADMIT Internal Medicine; ATTEND General Practice
PROC: 09C37ZZ Extirpation of Matter from Right External Auditory Canal, Via Natural or Artificial Opening (ICD-10-PCS; principal; 2022-12-25 15:00)
DX: H71.21 Cholesteatoma of mastoid, right ear (principal); H70.91 Unspecified mastoiditis, right ear; F17.210 Nicotine dependence, cigarettes, uncomplicated; J45.909 Unspecified asthma, uncomplicated; Z79.899 Other long term (current) drug therapy; Z88.0 Allergy status to penicillin; Z88.6 Allergy status to analgesic agent; Z88.8 Allergy status to other drugs, medicaments and biological substances

== ENCOUNTER 2023-06-16 01:15 | Emergency (ER) | payer MEDICAID, OTHER ==
[~2023-06-16] VITALS: Ht 160 cm; Wt 87.1 kg
[~2023-06-16 01:15] MED LIST changes: +BACI1CAP PO; +BREO1INH PO; +D3 S1CAP3 PO; +DEPO150I12 IM; +LEVO1TAB40 PO; -MEDR150I10; +MEDR150I13; +METR-265 PO; +OFLOSO OTIC; +OMEP1CAP73 PO; +OXYC1TAB23 PO; +SUMA25TA3 PO; +VENTAER INH
[2023-06-16] MEDS ORDERED: CIPRODEX OTIC SUSP 7.5ML AS STA (05:52)
[2023-06-16] MEDS ORDERED: CIPR7.5D5 AS (05:56)
[2023-06-16 06:27] VITALS: BP 146/76; TEMP 98.7; O2SAT 99
== END 2023-06-16 06:29 | disposition home or self-care (01) ==
LOC: M ED 01:15
DX: H60.92 Unspecified otitis externa, left ear (principal); K21.9 Gastro-esophageal reflux disease without esophagitis; G43.909 Migraine, unspecified, not intractable, without status migrainosus; F17.200 Nicotine dependence, unspecified, uncomplicated; Z88.0 Allergy status to penicillin; Z88.6 Allergy status to analgesic agent; Z88.8 Allergy status to other drugs, medicaments and biological substances; Z79.899 Other long term (current) drug therapy; Z79.51 Long term (current) use of inhaled steroids

== ENCOUNTER 2023-11-27 19:00 | Emergency (ER) | payer BC, MEDICAID, OTHER ==
[~2023-11-27] VITALS: Ht 167.6 cm; Wt 85.9 kg
[~2023-11-27 19:00] MED LIST changes: +CIPR7.5D5 AS
[2023-11-27 20:01] LABS: BASO % 0.2 % (0.0-1.0); EOS % 0.2 % (0.0-3.0); HEMATOCRIT 44.2 % (36.0-47.0); HEMOGLOBIN 14.9 g/dl (12.0-15.5); LYMPH # 1.5 10^3/uL (1.5-5.0); LYMPH % 12.5 % (24.0-44.0); MEAN CORPUSCULAR HEMOGLOBIN 27.7 pg (27.0-33.0); MEAN CORPUSCULAR HGB CONC 33.7 g/dl (32.0-36.5); MEAN CORPUSCULAR VOLUME 82.3 fl (80.0-96.0); MONO # 0.4 10^3/uL (0.0-0.8); MONO % 3.3 % (2.0-8.0); NEUTROPHILS # 10.1 10^3/uL (1.5-8.5); NEUTROPHILS % 83.6 % (36.0-66.0); PLATELET COUNT, AUTOMATED 297 10^3/uL (150-450); RED BLOOD COUNT 5.37 10^6/uL (4.00-5.40); WHITE BLOOD COUNT 12.1 10^3/uL (4.0-10.0)
[2023-11-27 20:06] LABS: ERYTHROCYTE SEDIMENTATION RATE 23 mm/hr (0-20)
[2023-11-27 20:17] LABS: C REACTIVE PROTEIN QUANTITATIV < 0.40 MG/DL (<1.0)
[2023-11-27 20:21] LABS: ALBUMIN 3.3 G/DL (3.2-5.2); ALKALINE PHOSPHATASE 115 U/L (46-116); ALT/SGPT 12 U/L (7.0-40); AST/SGOT 54 U/L (<34); BILIRUBIN,DIRECT < 0.1 MG/DL (<0.4); BILIRUBIN,TOTAL 0.4 MG/DL (0.3-1.2); BLOOD UREA NITROGEN 13 MG/DL (9-23); CALCIUM LEVEL 8.9 MG/DL (8.5-10.1); CARBON DIOXIDE LEVEL 23 MMOL/L (20-31); CHLORIDE LEVEL 102 MMOL/L (98-107); CREATININE FOR GFR 0.45 MG/DL (0.55-1.30); GLOMERULAR FILTRATION RATE > 60.0 (>60); GLUCOSE, FASTING 123 MG/DL (60-100); LIPASE 56 U/L (12-53); MAGNESIUM LEVEL 1.6 MG/DL (1.8-2.4); POTASSIUM SERUM 5.9 MMOL/L (3.5-5.1); SODIUM LEVEL 132 MMOL/L (136-145); TOTAL PROTEIN 6.8 G/DL (5.7-8.2)
[2023-11-27 20:31] LABS: HCG, SERUM QUALITATIVE NEGATIVE (NEGATIVE)
[2023-11-27] MEDS: KETOROLAC 30 MG/ML 1ML VIAL IV ONE (20:51)
[2023-11-27] MEDS: NS 1,000 ML IV ONE (20:51)
[2023-11-27] MEDS: ONDANSETRON 4MG 2ML VIAL IV ONE (20:51)
[2023-11-27] MEDS: SUMAtriptan SUCCINATE 6MG/0.5ML VIAL SC ONE (20:52)
[2023-11-27 21:47] LABS: ETHYL ALCOHOL (ETHANOL) 0.007 % (0.000-0.010)
[2023-11-27 21:49] LABS: SALICYLATE LEVEL < 3.0 MG/DL (<30)
[2023-11-27 21:54] LABS: CK-MB VALUE MASS < 1.0 NG/ML (<3.6); CPK CREATINE PHOSPHOKINASE 109 U/L (34-145); MB/CK RELATIVE INDEX 0.91 (< OR =4); POTASSIUM SERUM 4.1 MMOL/L (3.5-5.1); THYROID STIMULATING HORMONE 1.935 uIU/ML (0.55-4.78)
[2023-11-27 22:38] VITALS: BP 128/67; TEMP 97.6; O2SAT 98
== END 2023-11-27 23:18 | disposition home or self-care (01) ==
LOC: M ED 19:00 → EDBD 19:00 → M ED 23:18
DX: G43.909 Migraine, unspecified, not intractable, without status migrainosus (principal); J45.909 Unspecified asthma, uncomplicated; K21.9 Gastro-esophageal reflux disease without esophagitis; F17.200 Nicotine dependence, unspecified, uncomplicated; Z88.0 Allergy status to penicillin; Z88.6 Allergy status to analgesic agent
CPT/HCPCS: 70450; 80048; 80076; 80143; 82077; 82140; 82550; 82553; 83690; 83735; 84132; 84443; 84703; 85025; 85652; 86140; 93005; 96374; 96375; 99284; J1885; J2405; J3030

== ENCOUNTER 2025-06-03 09:25 | Emergency (ER) | payer OTHER ==
[~2025-06-03] VITALS: Ht 160 cm; Wt 72.2 kg
[~2025-06-03 09:25] MED LIST changes: +GABA-1490; -GABA600T4; -LEVO750T14 PO; +LEVO75TAB PO
[2025-06-03 10:37] VITALS: TEMP 98.7
[2025-06-03] MEDS: IPRATROPIUM 0.5 MG/ALBUTEROL 2.5 MG INH SOL UD 3 ML NEB ONE ×2 (11:19→12:01)
[2025-06-03] MEDS ORDERED: PRED20TA PO (11:51)
[2025-06-03 12:19] VITALS: BP 136/61; O2SAT 95
== END 2025-06-03 12:20 | disposition home or self-care (01) ==
LOC: M ED 09:25 → EDBD 09:25 → M ED 12:20
DX: J20.8 Acute bronchitis due to other specified organisms (principal); B34.1 Enterovirus infection, unspecified; J45.909 Unspecified asthma, uncomplicated; F17.290 Nicotine dependence, other tobacco product, uncomplicated; F12.10 Cannabis abuse, uncomplicated; Z88.0 Allergy status to penicillin; Z88.6 Allergy status to analgesic agent; Z79.51 Long term (current) use of inhaled steroids; Z79.899 Other long term (current) drug therapy; Z79.52 Long term (current) use of systemic steroids